=== PATIENT | female | born 1945 | race Caucasian/White ===

== ENCOUNTER 2018-04-06 12:51 | Inpatient (IN) | payer MEDICARE, OTHER ==
[~2018-04-06] VITALS: Ht 162.6 cm; Wt 110.7 kg
--- NOTE | ~2018-04-06 | MORECARE ---
CASE MANAGEMENT DISCHARGE SUMMARY PATIENT: ALEXYS JENSEN UNIT: [id number] ADM DATE: 04/06/18 AGE: 72 : [birth year] SEX: F ROOM/BED: D.2105 AUTHOR: JONATHAN,DOC PHYSICIAN: REFERRING PHYSICIAN: ANNE-MARIE DO MD DATE OF SERVICE: 04/08/18 Discharge Plan Patient Name: ALEXYS JENSEN Facility: [facility]:[place] : 1945 Planned Disposition: Home Anticipated Discharge Date: 04/08/18 Discharge Date: 04/08/2018 Expected LOS: 2 Initial Reviewer: [id number] Initial Review Date: 04/08/2018 Generated: 04/08/18 5:52 pm Comments DCP- Discharge Planning Updated by [id number]: Elvin Kohler on 04/08/18 3:[address] Patient Name: ALEXYS JENSEN Admission Status: ER Accout number: [id number] Admission Date: 04-06-2018 : 1945 Admission Diagnosis: Attending: ANNE-MARIE DO Current LOS: 2 Anticipated DC Date: 04-08-2018 Planned Disposition: Home Primary Insurance: MEDICARE A & B Discharge Planning Comments: CM MET WITH PT IN ROOM TO DISCUSS DISCHARGE PLANNING AND NEEDS. PT REPORTS LIVING AT HOME INDEPENDENTLY WITH HER SPOUSE. PT HAS ROLLING WALKER AND SHOWER CHAIR WITH NO MEDICAL EQUIPMENT PROVIDER PREFERENCE. PT HAS NO OUTSIDE SERVICES ASSISTING IN THE HOME. CM DISCUSSED AVAILABILITY OF HOME HEALTH, REHAB SERVICES AND MEDICAL EQUIPMENT. PT DENIES DISCHARGE NEEDS, REPORTS HER SPOUSE WILL PICK HER UP FOR DISCHARGE HOME. IMPORTANT MESSAGE FROM MEDICARE PROVIDED AND EXPLAINED. BACON DE RINDER NURSE NOTIFIED. Continuous Mining Machine Lode Miner: Elvin Kohler DCPIA - Discharge Planning Initial Assessment Updated by [id number]: Elvin Kohler on 04/08/18 4:43 pm * Is the patient Alert and Oriented? Yes * How many steps to enter\exit or inside your home? 2--I * PCP DR. HUMPHREYS * Pharmacy [facility] [address] * Preadmission Environment Home with Family * ADLs Independent * Equipment Rolling Walker Shower Chair * Other Equipment NO MEDICAL EQUIPMENT PROVIDER PREFERENCE * List name and contact numbers for known caregivers / representatives who currently or will assist patient after discharge: DAVID JENSEN, SPOUSE, * Verbal permission to speak to the caregivers and representatives has been obtained from the patient. N/A * Community resources currently utilized None * Please name any agencies selected above. NONE * Additional services required to return to the preadmission environment? No * Can the patient safely return to the preadmission environment? Yes * Has this patient been hospitalized within the prior 30 days at any hospital? No Coverage Notice Reviewer: [id number] Danielle Kohler Notice Issued Date-Time: 04/08/2018 11:35 Notice Type: IM Discharge Notice Notice Delivered To: Patient Relationship to Patient: Electrical Engineering Drafting Officer Name: Delivery Method: HAND - Hand Delivered Mayte Days: Prior Verbal Notification: Recipient Understood Notice: Yes Recipient Signature: Yes Med Rec Note Co-signed by Attending: Coverage Notice Comment: Patient Name: ALEXYS JENSEN Page [phone] at 1652 All edits/amendments must be made on the electronic document DICTATION DATE: 04/08/181650 ENDS BREAKAGE CLERK: JOE 04/08/181650 RPT#: [id number] DC DATE:04/08/18 STATUS: DIS IN [facility] [address] [place] [address] END OF REPORT
[~2018-04-06 12:51] MED LIST: DYAZIDE 37.5/251 CAP PO; GLUCOPHAGE500 MG PO; JANUVIA100 MG PO; OMEPRAZOLE PO; PROZAC20 MG PO; VIMOVO 500-201 EACH PO; [UNRECOGNIZED DRUG - OTHER] PO
[2018-04-06] MEDS ORDERED: PROTONIX40 MG PO (13:13)
[2018-04-06] MEDS ORDERED: HORIZANT PO (13:15)
[2018-04-06] MEDS ORDERED: AMOXICILLIN500 M1 PO (13:16)
[2018-04-06 13:46] LABS: BASOPHILS 0.4 % (0-2); IMMATURE GRANULOCYTES 0.1 % (0-5); LYMPHOCYTES 36.5 % (15-50); MCH 25.4 pg (26.0-34.0); MCHC 30.8 g/dL (31.0-37.0); MCV 82.5 fL (80.0-100.0); MEAN PLATELET VOLUME 11.6 fL (7.4-10.4); MONOCYTES 8.8 % (2-11); NEUTROPHILS 52.2 % (40-80); PLATELET COUNT 417 10x3/uL (130-400); RBC 4.73 10x6/uL (4.00-5.40); WBC 9.4 10x3/uL (4.8-10.8)
[2018-04-06 13:58] LABS: ALBUMIN 3.6 g/dL (3.4-5.0); ANION GAP 8.9 mmol/L (8-16); BILIRUBIN - TOTAL 0.32 mg/dL (0.2-1.3); CARBON DIOXIDE 31.4 mmol/L (21.0-32.0); CREATININE - SERUM 0.9 mg/dL (0.6-1.3); POTASSIUM - SERUM 4.3 mmol/L (3.5-5.1)
[2018-04-06 14:01] LABS: APPEARANCE CLEAR (CLEAR); BACTERIA FEW /hpf (NONE SEEN); BILIRUBIN NEGATIVE (NEGATIVE); COLOR YELLOW (YELLOW); EPITHELIAL CELLS 0-5 /hpf (0-5); GLUCOSE NEGATIVE (NEGATIVE); KETONE NEGATIVE (NEGATIVE); NITRITE NEGATIVE (NEGATIVE); PROTEIN NEGATIVE (NEGATIVE); SPECIFIC GRAVITY 1.015 (1.005-1.020); UROBILINOGEN NORMAL (NORMAL); WHITE CELLS - URINE 0-5 /hpf (0-5)
[2018-04-06 14:40] VITALS: BP 146/82
[2018-04-06 14:48] VITALS: BP 146/86
[2018-04-06 17:33] VITALS: BP 148/86
[2018-04-07] VITALS: BP 143/78
[2018-04-07 01:05] VITALS: BP 151/87
[2018-04-07 01:34] VITALS: BP 151/87; BMI 41.9
[2018-04-07 04:00] VITALS: BP 143/65
[2018-04-07 07:11] LABS: BASOPHILS 0.5 % (0-2); EOSINOPHILS 2.9 % (0-7); HEMATOCRIT 36.9 % (36.0-48.0); HEMOGLOBIN 11.4 g/dL (12-16); IMMATURE GRANULOCYTES 0.1 % (0-5); LYMPHOCYTES 43.4 % (15-50); MCH 25.4 pg (26.0-34.0); MCHC 30.9 g/dL (31.0-37.0); MCV 82.2 fL (80.0-100.0); MONOCYTES 8.8 % (2-11); NEUTROPHILS 44.3 % (40-80); PLATELET COUNT 426 10x3/uL (130-400); RBC 4.49 10x6/uL (4.00-5.40); RDW 17.1 % (11.5-14.5); WBC 7.9 10x3/uL (4.8-10.8)
[2018-04-07 07:47] LABS: ALBUMIN 3.4 g/dL (3.4-5.0); ALKALINE PHOSPHATASE 95 U/L (46-116); ALT (SGPT) 15 U/L (10-68); BILIRUBIN - TOTAL 0.54 mg/dL (0.2-1.3); CALCIUM 8.5 mg/dL (8.5-10.1); CARBON DIOXIDE 27.8 mmol/L (21.0-32.0); CHLORIDE - SERUM 104 mmol/L (98-107); CREATININE - SERUM 0.8 mg/dL (0.6-1.3); GLUCOSE 124 mg/dL (74-106); POTASSIUM - SERUM 3.8 mmol/L (3.5-5.1); PROTEIN - SERUM 7.5 g/dL (6.4-8.2); SODIUM 139 mmol/L (136-145); eGFR NON AFRICAN AMERICAN 75 mL/min (90-120)
[2018-04-07 07:48] LABS: CALC OSMOLALITY 277 mosm/kg (275-300); UREA NITROGEN 9 mg/dL (7-18)
[2018-04-07 08:19] VITALS: BP 146/90
[2018-04-07 11:02] VITALS: BP 140/76
[2018-04-07 11:33] VITALS: Ht 162.6 cm; Wt 110.7 kg
[2018-04-08 04:22] LABS: BASOPHILS 0.2 % (0-2); EOSINOPHILS 0.5 % (0-7); HEMATOCRIT 35.4 % (36.0-48.0); IMMATURE GRANULOCYTES 0.2 % (0-5); LYMPHOCYTES 31.6 % (15-50); MCH 25.2 pg (26.0-34.0); MCHC 31.1 g/dL (31.0-37.0); MCV 81.2 fL (80.0-100.0); MONOCYTES 6.9 % (2-11); NEUTROPHILS 60.6 % (40-80); PLATELET COUNT 338 10x3/uL (130-400); RBC 4.36 10x6/uL (4.00-5.40); RDW 16.9 % (11.5-14.5); WBC 8.1 10x3/uL (4.8-10.8)
[2018-04-08 04:43] LABS: INR 1.06 (0.85-1.17); PROTIME 13.3 SECONDS (11.6-15.0)
[2018-04-08 04:47] LABS: ALKALINE PHOSPHATASE 88 U/L (46-116); ALT (SGPT) 15 U/L (10-68); AMYLASE - SERUM 26 U/L (25-115); BILIRUBIN - TOTAL 0.35 mg/dL (0.2-1.3); CALC OSMOLALITY 270 mosm/kg (275-300); CALCIUM 8.3 mg/dL (8.5-10.1); CARBON DIOXIDE 25.9 mmol/L (21.0-32.0); CHLORIDE - SERUM 103 mmol/L (98-107); CHOL - HDL RATIO 3.6 ratio (2.3-4.1); CHOLESTEROL, TOTAL 176 mg/dL (0-200); CREATININE - SERUM 0.6 mg/dL (0.6-1.3); GLUCOSE 124 mg/dL (74-106); HDL CHOLESTEROL 49 mg/dL (32-96); LDL CHOLESTEROL 116 mg/dL (0-100); LDL-HDL RATIO 2.4 ratio (1.5-3.5); LIPASE 98 U/L (73-393); POTASSIUM - SERUM 3.9 mmol/L (3.5-5.1); PROTEIN - SERUM 6.8 g/dL (6.4-8.2); SODIUM 136 mmol/L (136-145); TRIGLYCERIDE 57 mg/dL (30-200); UREA NITROGEN 7 mg/dL (7-18); eGFR NON AFRICAN AMERICAN > 90 mL/min (90-120)
[2018-04-08 08:07] VITALS: BP 141/83
[2018-04-08] MEDS ORDERED: KEFLEX500 MG PO (10:41)
[2018-04-08] MEDS ORDERED: FLAGYL500 MG PO (10:41)
[2018-04-08 11:34] VITALS: BP 136/82
== END 2018-04-08 14:52 | disposition home or self-care (01) | DRG 392 ==
LOC: D.ER 12:51 → D.EDHOLD 18:05 → D.M2 18:05 → D.SDCHOLD 04-08 12:42 → D.M2 04-08 12:45
PROVIDERS: Family Medicine; Internal Medicine Gastroenterology; Internal Medicine Nephrology
DX: K57.32 Diverticulitis of large intestine without perforation or abscess without bleeding (principal); N17.9 Acute kidney failure, unspecified; D50.9 Iron deficiency anemia, unspecified; R16.0 Hepatomegaly, not elsewhere classified; I10 Essential (primary) hypertension; K21.9 Gastro-esophageal reflux disease without esophagitis; F41.9 Anxiety disorder, unspecified; F32.9 Major depressive disorder, single episode, unspecified; K76.0 Fatty (change of) liver, not elsewhere classified

== ENCOUNTER → 2018-10-05 08:51 | Outpatient (CLI) | payer MEDICARE, OTHER ==
[2018-04-07 11:33] VITALS: BMI 41.9
[~2018-10-05 08:51] MED LIST changes: +AMOXICILLIN500 M1 PO; +FLAGYL500 MG PO; +HORIZANT PO; +KEFLEX500 MG PO; +PROTONIX40 MG PO
[2018-10-05 09:51] LABS: ALBUMIN 4.2 g/dL (3.4-5.0); BILIRUBIN - DIRECT 0.09 mg/dL (0.00-0.30); BILIRUBIN - INDIRECT 0.39 mg/dL (0.00-1.00); BILIRUBIN - TOTAL 0.48 mg/dL (0.2-1.3); PROTEIN - SERUM 7.6 g/dL (6.4-8.2)
== END | disposition home or self-care (01) ==
LOC: D.US 08:51
PROVIDERS: ATTEND Internal Medicine Gastroenterology
DX: K76.0 Fatty (change of) liver, not elsewhere classified (principal)

== ENCOUNTER → 2018-11-29 15:10 | Outpatient (CLI) | payer MEDICARE, OTHER ==
[2018-04-07 11:33] VITALS: BMI 41.9
== END | disposition home or self-care (01) ==
LOC: D.LABREF 15:10
PROVIDERS: ATTEND Orthopaedic Surgery
DX: M17.12 Unilateral primary osteoarthritis, left knee (principal); Z11.8 Encounter for screening for other infectious and parasitic diseases

== ENCOUNTER 2018-12-02 09:36 | Inpatient (IN) | payer MEDICARE, OTHER ==
[~2018-12-02] VITALS: Ht 157.5 cm; Wt 109.5 kg
[2018-12-13] MEDS ORDERED: VIMOVO 500-201 EACH PO (14:52)
[2018-12-13] MEDS ORDERED: HYDROCODON-ACE1 EA10 PO (14:55)
[2018-12-13] MEDS ORDERED: CO Q-10100 MG PO (14:56)
[2018-12-13] MEDS ORDERED: TUMERIC PO (14:56)
[2018-12-14 11:19] LABS: BASOPHILS 0.4 % (0-2); EOSINOPHILS 3.1 % (0-7); HEMATOCRIT 38.3 % (36.0-48.0); HEMOGLOBIN 12.2 g/dL (12-16); IMMATURE GRANULOCYTES 0.2 % (0-5); LYMPHOCYTES 36.7 % (15-50); MCHC 31.9 g/dL (31.0-37.0); MCV 84.7 fL (80.0-100.0); MEAN PLATELET VOLUME 11.4 fL (7.4-10.4); MONOCYTES 8.1 % (2-11); NEUTROPHILS 51.5 % (40-80); RBC 4.52 10x6/uL (4.00-5.40); RDW 16.8 % (11.5-14.5); WBC 9.5 10x3/uL (4.8-10.8)
[2018-12-14 11:23] LABS: PLATELET COUNT 418 10x3/uL (130-400)
[2018-12-14 11:31] LABS: ANION GAP 10.3 mmol/L (8-16); CARBON DIOXIDE 30.3 mmol/L (21.0-32.0); CREATININE - SERUM 0.9 mg/dL (0.6-1.3); POTASSIUM - SERUM 4.6 mmol/L (3.5-5.1)
[2018-12-14 11:35] LABS: APTT 29.1 SECONDS (22.8-39.4); INR 1.02 (0.85-1.17); PROTIME 12.9 SECONDS (11.6-15.0)
[2018-12-14 11:51] LABS: APPEARANCE HAZY (CLEAR); BACTERIA MODERATE /hpf (NONE SEEN); BILIRUBIN NEGATIVE (NEGATIVE); COLOR YELLOW (YELLOW); EPITHELIAL CELLS 0-5 /hpf (0-5); GLUCOSE NEGATIVE (NEGATIVE); KETONE NEGATIVE (NEGATIVE); NITRITE NEGATIVE (NEGATIVE); PROTEIN NEGATIVE (NEGATIVE); RED CELLS - URINE 0-5 /hpf (0-5); SPECIFIC GRAVITY 1.015 (1.005-1.020); WHITE CELLS - URINE 0-5 /hpf (0-5)
[2018-12-14 11:52] LABS: HYALINE CAST RARE /lpf (NONE SEEN); MUCUS >1+ /lpf (NONE SEEN); WAXY CAST RARE /lpf (NONE SEEN)
[2018-12-21 06:08] VITALS: BP 123/79; BMI 44.2
[2018-12-21 10:42] VITALS: BP 122/84
[2018-12-21 10:59] VITALS: BP 122/84; Ht 157.5 cm; Wt 109.5 kg
--- NOTE | 2018-12-21 11:07 | NUR ---
TO ROOM 2220 FROM PACU VIA BED. PT IS VERY DROWSY. SHE IS WITHOUT SIGNS OF PAIN.VITAL SIGNS STABLE,SEE GRAPHICS. ORIENTATION TO ROOM.CALL LIGHT IN REACH
[2018-12-21 18:46] VITALS: BP 110/56
--- NOTE | 2018-12-21 20:30 | NUR ---
AWAKE,ALERT WITH CONFUSION NOTED. DISORIENTED TO SITUATION.IV INFUSING TO LEFT WRIST WITHOUT REDNESS OR EDEMA NOTED. KATH WRAP TO LEFT KNEE WITHOUT DRAINAGE NOTED. REQUESTING CPM BE TAKEN OFF AT THIS TIME. WOUND VAC INTACT TO LEFT KNEE CL IN REACH. AT BEDSIDE.
--- NOTE | 2018-12-21 22:10 | NUR ---
PATIENT CONFUSED. PULLED IV OUT.STATES"GOTTA BE AT HOSPITAL AT 4AM FOR SURGERY". ATTEMPTED TO REORIENT TO SURROUNDINGS.STATES" OH I FORGOT". IV RESTART X 3 NURSES AND 6 ATTEMPTS WITHOUT SUCCESS. PATIENT REFUSING TO BE STUCK AGAIN.CL IN REACH
[2018-12-21 22:19] VITALS: BP 159/70
[2018-12-22 02:02] VITALS: BP 142/80
--- NOTE | 2018-12-22 04:42 | NUR ---
I have reviewed this patient and I concur with the Shift Assessment completed by the Licensed Practical Nurse today this shift.
[2018-12-22 05:04] VITALS: BP 147/68
--- NOTE | 2018-12-22 05:15 | NUR ---
PATIENT SITTING ON SIDE OF BED. INSTRUCTED PATIENT NO TO TRY TO GET UP BY HERSELF. PATIENT NO NOTED TO BE SITTING IN CHAIR. STATES" I JUST WANTED UP"
--- NOTE | 2018-12-22 05:24 | NUR ---
ATTEMPTED TO EXPLAIN TO PATIENT IMPORTANCE OF STAYING IN BED UNTIL THERAPHY COME IN TO WORK WITH HER. STATE" IM TIRED OF YOU TELLING ME WHAT I CAN DO. I HAVE DONE THIS TOO MANY TIMES AND YOU AND THE DR OR WHOEVER CAN JUST FORGET IT BECAUSE I WILL DO WHATEVER I WANNA DO. PATIENT HAS TRANSFERRED SELF BACK TO BED. CL IN REACH
[2018-12-22 07:09] LABS: BASOPHILS 0.2 % (0-2); EOSINOPHILS 0.1 % (0-7); HEMATOCRIT 34.8 % (36.0-48.0); HEMOGLOBIN 10.8 g/dL (12-16); IMMATURE GRANULOCYTES 0.3 % (0-5); LYMPHOCYTES 22.4 % (15-50); MCH 26.4 pg (26.0-34.0); MCV 85.1 fL (80.0-100.0); MONOCYTES 11.1 % (2-11); NEUTROPHILS 65.9 % (40-80); PLATELET COUNT 356 10x3/uL (130-400); RBC 4.09 10x6/uL (4.00-5.40); RDW 16.8 % (11.5-14.5)
--- NOTE | 2018-12-22 07:15 | NUR ---
PT CONFUSED THIS AM. PT STATES SHE HAS TO GO TO THE HOSPITAL TO HAVE SURGERY. THIS NURSE REORIENTED PATIENT. NO C/O PAIN. POD #1 LTK, WOUND VAC TO KNEE AND KATH WRAP. PT WILL NOT KEEP CPM ON. PT TOOK OUT IV LAST NIGHT AND WAS UNABLE TO BE RESITED. IV STILL OUT. NO S/S OF ACUTE DISTRESS NOTED. PT DENIES ANY NEEDS. CALL LIGHT IN REACH. DAVE ALARM ON. WILL CONTINUE TO MONITOR.
[2018-12-22 07:23] LABS: ANION GAP 16.3 mmol/L (8-16); CALCIUM 8.1 mg/dL (8.5-10.1); CREATININE - SERUM 0.9 mg/dL (0.6-1.3); POTASSIUM - SERUM 4.3 mmol/L (3.5-5.1)
[2018-12-22 09:37] VITALS: BP 141/76
--- NOTE | 2018-12-22 12:18 | NUR ---
I have reviewed this patient and I concur with the Shift Assessment completed by the Licensed Practical Nurse today this shift.
[2018-12-22 13:07] VITALS: BP 106/88
[2018-12-22 18:14] VITALS: BP 178/72
--- NOTE | 2018-12-22 18:43 | NUR ---
PT ALERT AND ORIENTED. PT DENIES ANY NEEDS. CALL LIGHT IN REACH. WILL CONTINUE TO MONITOR.
--- NOTE | 2018-12-22 18:44 | NUR ---
PT CONFUSED, VERBALLY DISRUPTIVE AND AGITATED. CURSING AND YELLING AT STAFF. KEEPS GETTING OUT OF BED, DAVE ALARM ON AT ALL TIMES. PT STATES "I AM GOING TO DO WHAT I WANT AND YOU CAN'T TELL ME WHAT TO DO!" PT NONCOMPLIANT WITH ASKING FOR ASSISTANCE. HIGH FALL RISK.
[2018-12-22 21:09] VITALS: BP 126/87
[2018-12-23 01:30] VITALS: BP 189/63
[2018-12-23 05:11] LABS: BASOPHILS 0.2 % (0-2); EOSINOPHILS 0.1 % (0-7); HEMATOCRIT 35.9 % (36.0-48.0); HEMOGLOBIN 11.5 g/dL (12-16); IMMATURE GRANULOCYTES 0.4 % (0-5); LYMPHOCYTES 23.9 % (15-50); MCH 26.6 pg (26.0-34.0); MEAN PLATELET VOLUME 12.2 fL (7.4-10.4); MONOCYTES 10.1 % (2-11); NEUTROPHILS 65.3 % (40-80); PLATELET COUNT 371 10x3/uL (130-400); RBC 4.32 10x6/uL (4.00-5.40); RDW 16.2 % (11.5-14.5)
[2018-12-23 05:13] LABS: MCV 83.1 fL (80.0-100.0); WBC 15.8 10x3/uL (4.8-10.8)
[2018-12-23 08:24] VITALS: BP 122/57
--- NOTE | 2018-12-23 09:00 | NUR ---
ALERT AND ORIENTED TO SELF ONLY. WITH KATH WRAP AND DRESSING INTACT TO LLE. PEDAL PULSES NOTED. DENIES ANY PAIN OR DISCOMFORT AT THIS TIME.WOUND VACINTACT TO LLE WITH FALL PRECAUTIONS IN PLACE.
[2018-12-23 10:39] LABS: ALBUMIN 3.1 g/dL (3.4-5.0); ALKALINE PHOSPHATASE 153 U/L (46-116); ALT (SGPT) 89 U/L (10-68); BILIRUBIN - TOTAL 0.71 mg/dL (0.2-1.3); CALCIUM 8.8 mg/dL (8.5-10.1); CARBON DIOXIDE 28.5 mmol/L (21.0-32.0); CHLORIDE - SERUM 99 mmol/L (98-107); CREATININE - SERUM 0.7 mg/dL (0.6-1.3); GLUCOSE 156 mg/dL (74-106); PROTEIN - SERUM 7.4 g/dL (6.4-8.2); SODIUM 136 mmol/L (136-145); eGFR NON AFRICAN AMERICAN 87 mL/min (90-120)
[2018-12-23 10:40] LABS: CALC OSMOLALITY 273 mosm/kg (275-300); POTASSIUM - SERUM 3.6 mmol/L (3.5-5.1); UREA NITROGEN 9 mg/dL (7-18)
[2018-12-23 13:40] VITALS: BP 131/65
[2018-12-23 16:45] VITALS: BP 162/91
[2018-12-23 19:57] LABS: APPEARANCE CLEAR (CLEAR); BILIRUBIN NEGATIVE (NEGATIVE); COLOR YELLOW (YELLOW); GLUCOSE NEGATIVE (NEGATIVE); KETONE NEGATIVE (NEGATIVE); NITRITE NEGATIVE (NEGATIVE); PROTEIN 1+ mg/dL (NEGATIVE); SPECIFIC GRAVITY 1.005 (1.005-1.020); UROBILINOGEN NORMAL (NORMAL)
[2018-12-23 19:59] LABS: BACTERIA FEW /hpf (NONE SEEN); EPITHELIAL CELLS 0-5 /hpf (0-5); RED CELLS - URINE 0-5 /hpf (0-5); WHITE CELLS - URINE 0-5 /hpf (0-5)
[2018-12-23 20:07] VITALS: BP 154/68
[2018-12-24 08:06] LABS: ALBUMIN 2.7 g/dL (3.4-5.0); ANION GAP 13.6 mmol/L (8-16); BILIRUBIN - TOTAL 0.79 mg/dL (0.2-1.3); CALCIUM 8.6 mg/dL (8.5-10.1); CREATININE - SERUM 0.8 mg/dL (0.6-1.3); POTASSIUM - SERUM 3.6 mmol/L (3.5-5.1); PROTEIN - SERUM 6.9 g/dL (6.4-8.2)
[2018-12-24 08:14] LABS: BASOPHILS 0.3 % (0-2); HEMATOCRIT 32.6 % (36.0-48.0); HEMOGLOBIN 10.5 g/dL (12-16); IMMATURE GRANULOCYTES 0.3 % (0-5); LYMPHOCYTES 22.7 % (15-50); MCH 26.4 pg (26.0-34.0); MCHC 32.2 g/dL (31.0-37.0); MCV 81.9 fL (80.0-100.0); MEAN PLATELET VOLUME 12.4 fL (7.4-10.4); MONOCYTES 11.1 % (2-11); NEUTROPHILS 64.6 % (40-80); PLATELET COUNT 363 10x3/uL (130-400); RBC 3.98 10x6/uL (4.00-5.40); RDW 16.3 % (11.5-14.5); WBC 14.8 10x3/uL (4.8-10.8)
--- NOTE | 2018-12-24 09:49 | NUR ---
PT LYING IN BED STATED THAT HER LEGS ARE HURTING FROM BEING IN THE CPM MACHINE AND THEY LEFT ON THERE TOO LONG SO SHE TOOK IT OFF AND REFUSES TO BE PLACED BACK ON IT TODAY. PT STATES SHE DOES NOT HAVE AN APPETITE AND " JUST DON'T FEEL LIKE EATING" NO FAMILY AT BEDSIDE, CL IN REACH CONTINUE WITH PLAN OF CARE
[2018-12-24 10:25] VITALS: BP 151/68
[2018-12-24 13:14] VITALS: BP 108/52
--- NOTE | 2018-12-24 19:11 | NUR ---
I have reviewed this patient and I concur with the Shift Assessment completed by the Licensed Practical Nurse today this shift.
--- NOTE | 2018-12-24 19:45 | NUR ---
PT IN BED ALERT AND CONFUSED DAVIAN AT BEDSIDE, ENCOURGED TO STAY THE NIGHT SHE WAS UP MULTABLE TIMES LAST NIGHT WITH CONFUSION. WATER AND CALL LIGHT IN REACH.
[2018-12-24 20:55] VITALS: BP 137/59
[2018-12-25 05:16] VITALS: BP 130/80
[2018-12-25 07:03] LABS: BASOPHILS 0.2 % (0-2); EOSINOPHILS 3.1 % (0-7); HEMATOCRIT 32.7 % (36.0-48.0); HEMOGLOBIN 10.5 g/dL (12-16); IMMATURE GRANULOCYTES 0.5 % (0-5); LYMPHOCYTES 28.2 % (15-50); MCH 26.3 pg (26.0-34.0); MCHC 32.1 g/dL (31.0-37.0); MCV 81.8 fL (80.0-100.0); PLATELET COUNT 415 10x3/uL (130-400); RDW 16.2 % (11.5-14.5); WBC 12.6 10x3/uL (4.8-10.8)
[2018-12-25 07:21] LABS: ALBUMIN 2.6 g/dL (3.4-5.0); ANION GAP 12.6 mmol/L (8-16); BILIRUBIN - TOTAL 0.83 mg/dL (0.2-1.3); CALCIUM 8.5 mg/dL (8.5-10.1); CARBON DIOXIDE 25.9 mmol/L (21.0-32.0); CREATININE - SERUM 0.9 mg/dL (0.6-1.3); POTASSIUM - SERUM 3.5 mmol/L (3.5-5.1); PROTEIN - SERUM 6.8 g/dL (6.4-8.2)
[2018-12-25 08:32] VITALS: BP 122/69
--- NOTE | 2018-12-25 12:46 | NUR ---
PT SITTING UP IN BED EATING, STATES LEFT LEG IS REALLY HURTING TODAY, GAVE PT SEVERAL BAGS OF ICE AND ELEVATED LEG. ADMINISTERED PRN PAIN MEDICATION WITH 1200 MEDS. PT IS PASSING GAS BUT STILL NO BM WILL CONTINUE WITH PLAN OF CARE
[2018-12-25 13:28] VITALS: BP 100/77
--- NOTE | 2018-12-25 14:06 | NUR ---
I have reviewed this patient and I concur with the Shift Assessment completed by the Licensed Practical Nurse today this shift.
[2018-12-25 16:56] VITALS: BP 100/58
[2018-12-25 20:00] VITALS: BP 141/79
--- NOTE | 2018-12-25 21:36 | NUR ---
PT IN BED WITH JEANNINE AT BEDSIDE. ALERT AND ABLE TO VOICE NEEDS AND WANTS TO STAFF. WATER AND CALL LIGHT IN REACH. NO S/S OF DISTRESS NOTED AT THIS TIME. DRESSING TO LEFT KNEE CDI. WOUND VAC IN PLACE AND WORKING. REFUSED SCD'S. USED CPM FOR SHOURT TIME THIS SHIFT. CHECKED OFTEN FOR NEEDS AND SAFETY.
[2018-12-26] VITALS: BP 139/107
--- NOTE | 2018-12-26 01:25 | NUR ---
MYSQL DATABASE ADMINISTRATOR REPORTED ELAVATED B/P RECHECK WITH MANIUAL WAS 164/80
[2018-12-26 06:03] LABS: BASOPHILS 0.5 % (0-2); EOSINOPHILS 2.9 % (0-7); HEMATOCRIT 33.3 % (36.0-48.0); HEMOGLOBIN 10.6 g/dL (12-16); IMMATURE GRANULOCYTES 0.4 % (0-5); LYMPHOCYTES 29.5 % (15-50); MCH 26.4 pg (26.0-34.0); MCHC 31.8 g/dL (31.0-37.0); MEAN PLATELET VOLUME 11.8 fL (7.4-10.4); MONOCYTES 11.7 % (2-11); PLATELET COUNT 427 10x3/uL (130-400); RBC 4.01 10x6/uL (4.00-5.40); RDW 16.3 % (11.5-14.5); WBC 11.6 10x3/uL (4.8-10.8)
[2018-12-26 06:28] LABS: ALBUMIN 2.7 g/dL (3.4-5.0); ANION GAP 13.1 mmol/L (8-16); BILIRUBIN - TOTAL 0.77 mg/dL (0.2-1.3); CALCIUM 8.5 mg/dL (8.5-10.1); CREATININE - SERUM 0.8 mg/dL (0.6-1.3); PROTEIN - SERUM 6.3 g/dL (6.4-8.2)
[2018-12-26 06:39] LABS: POTASSIUM - SERUM 5.1 mmol/L (3.5-5.1)
--- NOTE | 2018-12-26 08:34 | NUR ---
Unknown reason for wound care consult. Pt is p/o knee and is being managed by Ortho.
[2018-12-26 08:41] VITALS: BP 152/84
[2018-12-26 14:01] VITALS: BP 142/78
--- NOTE | 2018-12-26 14:52 | MORECARE ---
CASE MANAGEMENT DISCHARGE SUMMARY PATIENT: ALEXYS JENSEN UNIT: [id number] ADM DATE: 12/21/18 AGE: 73 : 47 SEX: F ROOM/BED: D.2220 AUTHOR: MARILU CASTILLO PHYSICIAN: REFERRING PHYSICIAN: ÓSCAR MONTES MD DATE OF SERVICE: 12/26/18 Discharge Plan Patient Name: ALEXYS JENSEN Facility: [facility]:[place] : 1945 Planned Disposition: Home or Self Care Anticipated Discharge Date: Discharge Date: Expected LOS: Initial Reviewer: [id number] Initial Review Date: 12/21/2018 Generated: 12/26/18 3:52 pm Comments DCP- Discharge Planning Updated by [id number]: Aleena Mcdonald on 12/26/18 1:[address] Patient Name: ALEXYS JENSEN Admission Status: Elective Accout number: [id number] Admission Date: 12-21-2018 : 1945 Admission Diagnosis:UNILATERAL PRIMARY OSTEOARTHRITIS, LEFT KNEE Attending: ÓSCAR MONTES Current LOS: 5 Anticipated DC Date: Planned Disposition: Home or Self Care Primary Insurance: MEDICARE A & B Discharge Planning Comments: CM met with patient to complete initial dc planning assessment. CM educated patient on the CM role and verbal consent given by patient to complete assessment. Patient lives at home with her where she is independent with her care. At discharge patient plans to return home and feels this is a safe discharge. CM discussed availability of home health, rehab services, and medical equipment. She questioned about physical therapy, she does not want home health & feels that she could drive herself to OP PT. I explained to her that she would have to get that approved by her MD first. She has a walker, shower chair, BSC at home. She stated that someone has called her about delivering her CPM. [facility] served and explained to patient. Patient denied known discharge needs at this time. CM will continue to follow and will assist as needed with dc plans/needs. Housing And Residence Life Director: Aleena Mcdonald DCPIA - Discharge Planning Initial Assessment Updated by [id number]: Aleena Mcdonald on 12/26/18 2:48 pm * Is the patient Alert and Oriented? Yes * How many steps to enter\exit or inside your home? 14 * PCP JULIANN * Pharmacy [facility] * Preadmission Environment Home with Family * ADLs Independent * Equipment Bedside Commode Rolling Walker Shower Chair * List name and contact numbers for known caregivers / representatives who currently or will assist patient after discharge: DAVID JENSEN [phone] * Verbal permission to speak to the caregivers and representatives has been obtained from the patient. Yes * Community resources currently utilized None * Additional services required to return to the preadmission environment? Yes * Can the patient safely return to the preadmission environment? Yes * Has this patient been hospitalized within the prior 30 days at any hospital? No Coverage Notice Reviewer: [id number] Danielle Mcdonald Notice Issued Date-Time: 12/26/2018 14:20 Notice Type: IM Discharge Notice Notice Delivered To: Patient Relationship to Patient: Primary Care Nurse Name: Delivery Method: HAND - Hand Delivered Mayte Days: Prior Verbal Notification: Recipient Understood Notice: Yes Recipient Signature: Yes Med Rec Note Co-signed by Attending: Coverage Notice Comment: Patient Name: ALEXYS JENSEN Page [phone] at 1452 All edits/amendments must be made on the electronic document DICTATION DATE: 12/26/181451 WASHER ENGINEER HELPER: JOE 12/26/181451 RPT#: [id number] DC DATE: STATUS: ADM IN [address] [place] [address] END OF REPORT
[2018-12-26 17:15] VITALS: BP 148/74
--- NOTE | 2018-12-26 19:30 | NUR ---
PATIENT REFUSES CPM.
[2018-12-26 20:00] VITALS: BP 156/69; BP 158/71
--- NOTE | 2018-12-26 20:00 | NUR ---
ASSESSMENT PER FLOW SHEET. PT IS WITHOUT DISTRESS.HUSNBAND AT BEDSIDE. MONITOR FOR NEEDS.
[2018-12-27] VITALS: BP 156/81
--- NOTE | 2018-12-27 01:52 | NUR ---
HAS BEEN UP IN CHAIR. PAIN PILL GIVEN 20 MIN EARLY. PT STATES SHE HAS BEEN HAVING PAIN AND WAS TOLD SHE COULD HAVE MEDS WHEN EVER SHE WANTED. INSTRUCTED PT MEDS WERE EVERY FOUR HOURS NEEDED FOR PAIN.
[2018-12-27 04:00] VITALS: BP 127/81
--- NOTE | 2018-12-27 06:30 | NUR ---
HAD BEEN UP EARLY THIS AM.COMPLAINS OF PAIN IN KNEE,MEDS ORDERED.PT DECLINES CPM. PT STATES MAKES HER LEG HURT. CONT PLAN OF CARE
[2018-12-27 07:41] LABS: ALBUMIN 2.8 g/dL (3.4-5.0); ALKALINE PHOSPHATASE 137 U/L (46-116); ALT (SGPT) 41 U/L (10-68); BILIRUBIN - TOTAL 0.63 mg/dL (0.2-1.3); CALC OSMOLALITY 281 mosm/kg (275-300); CALCIUM 8.6 mg/dL (8.5-10.1); CARBON DIOXIDE 25.8 mmol/L (21.0-32.0); CHLORIDE - SERUM 103 mmol/L (98-107); CREATININE - SERUM 0.7 mg/dL (0.6-1.3); GLUCOSE 119 mg/dL (74-106); PROTEIN - SERUM 6.4 g/dL (6.4-8.2); SODIUM 141 mmol/L (136-145); UREA NITROGEN 13 mg/dL (7-18); eGFR NON AFRICAN AMERICAN 87 mL/min (90-120)
[2018-12-27 07:42] LABS: POTASSIUM - SERUM 4.1 mmol/L (3.5-5.1)
[2018-12-27 07:58] LABS: BASOPHILS 0.5 % (0-2); EOSINOPHILS 2.6 % (0-7); HEMATOCRIT 34.1 % (36.0-48.0); IMMATURE GRANULOCYTES 0.4 % (0-5); LYMPHOCYTES 39.1 % (15-50); MCH 26.9 pg (26.0-34.0); MCHC 32.3 g/dL (31.0-37.0); MCV 83.4 fL (80.0-100.0); MEAN PLATELET VOLUME 12.5 fL (7.4-10.4); MONOCYTES 9.5 % (2-11); NEUTROPHILS 47.9 % (40-80); RBC 4.09 10x6/uL (4.00-5.40); RDW 16.2 % (11.5-14.5); WBC 9.8 10x3/uL (4.8-10.8)
[2018-12-27 08:06] LABS: PLATELET COUNT 531 10x3/uL (130-400)
[2018-12-27 09:33] VITALS: BP 152/82
[2018-12-27 11:29] VITALS: BP 165/79
[2018-12-27 16:35] VITALS: BP 149/79
--- NOTE | 2018-12-27 18:50 | NUR ---
PATIENT IN BED WITH CALL LIGHT WITHIN REACH. WAITING TO RECIEVE MORE PAIN MEDS. STATED THAT SHE IS STILL HURTING. MAY HAVE NORCO AGAIN AT 1915.
--- NOTE | 2018-12-27 19:00 | NUR ---
ASSESSMENT PER FLOW SHEET. PT IS WITHOUT DISTRESS.MEDS ORDERED PER MAR FOR PAIN. MONITOR FOR NEEDS.CALL LIGHT IN REACH
[2018-12-27 20:00] VITALS: BP 178/91
--- NOTE | 2018-12-28 06:02 | NUR ---
TEARFUL THIS AM. HAS FEARS ABOUT POSSIBLE DC HOME TODAY. REMAINS WITHOUT CHANGE FROM INITIAL SHIFT ASSESSMENT.CONT PLAN OF CARE
--- NOTE | 2018-12-28 08:10 | NUR ---
PATIENT IS ALERT/ORENT. CALL LIGHT WITHI REACH. REQUESTED PRN NORCO FOR LEFT KNEE PAIN. GIVEN BY THIS NURSE
[2018-12-28 08:13] LABS: BASOPHILS 0.5 % (0-2); EOSINOPHILS 4.1 % (0-7); HEMATOCRIT 32.2 % (36.0-48.0); HEMOGLOBIN 10.3 g/dL (12-16); IMMATURE GRANULOCYTES 0.4 % (0-5); LYMPHOCYTES 32.1 % (15-50); MCH 26.5 pg (26.0-34.0); MCV 82.8 fL (80.0-100.0); MEAN PLATELET VOLUME 11.4 fL (7.4-10.4); MONOCYTES 8.9 % (2-11); PLATELET COUNT 515 10x3/uL (130-400); RBC 3.89 10x6/uL (4.00-5.40); RDW 16.2 % (11.5-14.5); WBC 10.3 10x3/uL (4.8-10.8)
[2018-12-28 08:45] LABS: ALBUMIN 2.5 g/dL (3.4-5.0); ANION GAP 13.1 mmol/L (8-16); BILIRUBIN - TOTAL 0.49 mg/dL (0.2-1.3); CALCIUM 8.7 mg/dL (8.5-10.1); CREATININE - SERUM 0.8 mg/dL (0.6-1.3); POTASSIUM - SERUM 4.1 mmol/L (3.5-5.1); PROTEIN - SERUM 6.8 g/dL (6.4-8.2)
[2018-12-28 10:17] VITALS: BP 153/88
--- NOTE | 2018-12-28 10:30 | NUR ---
PRN MOTRIN GIVEN FOR HEADACHE PER PATIENT REQUEST
--- NOTE | 2018-12-28 12:11 | NUR ---
Rehab Prescreening Consult recieved and the chart has been reviewed. She meets criteria and will be accepted today to the ARU. Discussed with the CM Patricia Mcdonald RN. Natalia Lock RN Clinical Liaison, Rehab
[2018-12-28 13:11] VITALS: BP 161/83
[2018-12-28] MEDS ORDERED: LOVENOX120 MG/0.8 SC (15:31)
[2018-12-28] MEDS ORDERED: MUCINEX600 MG PO (15:37)
[2018-12-28] MEDS ORDERED: TESSALON PERLE100 MG PO (15:37)
[2018-12-28] MEDS ORDERED: PROTONIX40 MG PO (15:37)
[2018-12-28] MEDS ORDERED: COLACE100 MG PO (15:37)
--- NOTE | 2018-12-28 15:51 | NUR ---
PREVENA DRESSING REMOVED FROM LEFT KNEE. INCISION CLEAN DRY AND INTACT. DRESSING APPLIED. SITTING IN RECLINER WITH LEGS ELEVATED WITH FRESH ICE BAGS X 2 APPLIED TO LEFT KNEE. FRIEND AT BEDSIDE. CALL LIGHT IN REACH
[2018-12-28 16:24] VITALS: BP 156/95
--- NOTE | 2018-12-28 17:18 | NUR ---
REPORT GIVEN TO STACIA HO, FOR ADMISSION TO REHAB
--- NOTE | 2018-12-28 18:43 | NUR ---
PATIENT TAKEN DOWN TO REHAB IN WHEELCHAIR BY STAFF
--- NOTE | 2019-01-04 09:51 | MORECARE ---
CASE MANAGEMENT DISCHARGE SUMMARY PATIENT: ALEXYS JENSEN UNIT: [id number] ADM DATE: 12/21/18 AGE: 73 : 46 SEX: F ROOM/BED: D.2220 AUTHOR: MARILU CASTILLO PHYSICIAN: REFERRING PHYSICIAN: ÓSCAR MONTES MD DATE OF SERVICE: 01/04/19 Discharge Plan Patient Name: ALEXYS JENSEN Facility: [facility]:[place] : 1945 Planned Disposition: Home or Self Care Anticipated Discharge Date: Discharge Date: 12/28/2018 Expected LOS: 0 Initial Reviewer: [email or web address] Initial Review Date: 12/21/2018 Generated: 01/04/19 10:50 am Comments DCP- Discharge Planning Updated by [email or web address]: Aleena Mcdonald on 12/26/18 1:[address] Patient Name: ALEXYS JENSEN Admission Status: Elective Accout number: [id number] Admission Date: 12-21-2018 : 1945 Admission Diagnosis:UNILATERAL PRIMARY OSTEOARTHRITIS, LEFT KNEE Attending: ÓSCAR MONTES Current LOS: 5 Anticipated DC Date: Planned Disposition: Home or Self Care Primary Insurance: MEDICARE A & B Discharge Planning Comments: CM met with patient to complete initial dc planning assessment. CM educated patient on the CM role and verbal consent given by patient to complete assessment. Patient lives at home with her where she is independent with her care. At discharge patient plans to return home and feels this is a safe discharge. CM discussed availability of home health, rehab services, and medical equipment. She questioned about physical therapy, she does not want home health & feels that she could drive herself to OP PT. I explained to her that she would have to get that approved by her MD first. She has a walker, shower chair, BSC at home. She stated that someone has called her about delivering her CPM. [facility] served and explained to patient. Patient denied known discharge needs at this time. CM will continue to follow and will assist as needed with dc plans/needs. Tactical Debriefer Officer: Aleena Mcdonald DCPIA - Discharge Planning Initial Assessment Updated by [email or web address]: Aleena Mcdonald on 12/26/18 2:48 pm * Is the patient Alert and Oriented? Yes * How many steps to enter\exit or inside your home? 14 * PCP JULIANN * Pharmacy [facility] * Preadmission Environment Home with Family * ADLs Independent * Equipment Bedside Commode Rolling Walker Shower Chair * List name and contact numbers for known caregivers / representatives who currently or will assist patient after discharge: DAVID JENSEN [phone] * Verbal permission to speak to the caregivers and representatives has been obtained from the patient. Yes * Community resources currently utilized None * Additional services required to return to the preadmission environment? Yes * Can the patient safely return to the preadmission environment? Yes * Has this patient been hospitalized within the prior 30 days at any hospital? No Coverage Notice Reviewer: [email or web address] Danielle Mcdonald Notice Issued Date-Time: 12/26/2018 14:20 Notice Type: IM Discharge Notice Notice Delivered To: Patient Relationship to Patient: Operational Review Sergeant Name: Delivery Method: HAND - Hand Delivered Mayte Days: Prior Verbal Notification: Recipient Understood Notice: Yes Recipient Signature: Yes Med Rec Note Co-signed by Attending: Coverage Notice Comment: Last DP export: 12/26/18 1:52 p Patient Name: ALEXYS JENSEN Page [id number] at 0951 All edits/amendments must be made on the electronic document DICTATION DATE: 01/04/19949 VARNISH THINNER: JOE 01/04/19949 RPT#: [id number] DC DATE:12/28/18 STATUS: DIS IN [place] [place] [address] END OF REPORT
== END 2018-12-28 18:44 | DRG 469 ==
LOC: D.SDCHOLD 12-21 05:35 → D.MS 12-21 05:35 → D.SDCHOLD 12-21 07:30 → D.MS 12-21 10:07
PROVIDERS: Emergency Medicine; ADMIT Orthopaedic Surgery; ATTEND Orthopaedic Surgery
PROC: 0SRD0J9 Replacement of Left Knee Joint with Synthetic Substitute, Cemented, Open Approach (ICD-10-PCS; principal; 2018-12-21 07:30)
DX: M17.12 Unilateral primary osteoarthritis, left knee (principal); G93.41 Metabolic encephalopathy; I82.402 Acute embolism and thrombosis of unspecified deep veins of left lower extremity; D62 Acute posthemorrhagic anemia; Z68.41 Body mass index [BMI] 40.0-44.9, adult; I10 Essential (primary) hypertension; E11.65 Type 2 diabetes mellitus with hyperglycemia; D50.9 Iron deficiency anemia, unspecified; K57.90 Diverticulosis of intestine, part unspecified, without perforation or abscess without bleeding; M54.9 Dorsalgia, unspecified; M79.7 Fibromyalgia; F41.8 Other specified anxiety disorders; N95.9 Unspecified menopausal and perimenopausal disorder; E66.9 Obesity, unspecified

== ENCOUNTER → 2018-12-20 14:54 | Outpatient (CLI) | payer MEDICARE, OTHER ==
[2018-04-07 11:33] VITALS: BMI 41.9
[~2018-12-20 14:54] MED LIST changes: +CO Q-10100 MG PO; +HYDROCODON-ACE1 EA10 PO; +TUMERIC PO
[2018-12-20 15:07] LABS: APPEARANCE CLEAR (CLEAR); BILIRUBIN NEGATIVE (NEGATIVE); COLOR YELLOW (YELLOW); GLUCOSE NEGATIVE (NEGATIVE); KETONE NEGATIVE (NEGATIVE); NITRITE NEGATIVE (NEGATIVE); PROTEIN NEGATIVE (NEGATIVE); UROBILINOGEN NORMAL (NORMAL)
== END | disposition home or self-care (01) ==
LOC: D.LABREF 14:54
PROVIDERS: ATTEND Orthopaedic Surgery
DX: N39.0 Urinary tract infection, site not specified (principal)

== ENCOUNTER 2018-12-28 18:30 | Inpatient (IN) | payer MEDICARE, OTHER ==
[~2018-12-28] VITALS: Ht 157.5 cm; Wt 110.7 kg
[~2018-12-28 18:30] MED LIST changes: +COLACE100 MG PO; +LOVENOX120 MG/0.8 SC; +MUCINEX600 MG PO; +TESSALON PERLE100 MG PO
--- NOTE | 2018-12-28 18:35 | NUR ---
ARRIVED TO ROOM 1115 FROM ACUTE UNIT. A/O. TRANSFERED WC TO MIN ASSIST. CL IN REACH. FAMILY IN ROOM.
--- NOTE | 2018-12-28 19:40 | NUR ---
PT LYING IN BED. CL IN REACH. BED IN LOW SIDE RAILS X2. A/O X4. LUNGS CLEAR. BOWEL ACTIVE X4. RESP EVEN AND UNLABORED. DENIES NEEDS BESIDES PAIN IN LEFT KNEE. WILL CONTINUE TO MONITOR.
[2018-12-28 20:16] VITALS: BMI 44.7
[2018-12-28 20:30] VITALS: BP 165/71
--- NOTE | 2018-12-28 23:26 | NUR ---
I have reviewed this patient and I concur with the Shift Assessment completed by the Licensed Practical Nurse today this shift.
--- NOTE | 2018-12-29 01:06 | NUR ---
PT PRESSED CALL LIGHT ABOUT 0040 AND WANTED SOMETHING FOR PAIN. THIS NURSE WENT INTO ROOM AND TOLD PT IT WAS NOT TIME FOR HER NORCO RIGHT NOW. PT THEN PRESSED CALL LIGHT AGAIN AT 0100 ASKING IF SHE COULD HAVE SOMETHING FOR PAIN. NEW ORDER FOR IBUPROFEN/MOTRIN 600MG WAS ADMINISTERED FOR BREAK THROUGH PAIN. THIS NURSE WENT INTO ROOM TO GIVE TO PATIENT AND PATIENT WAS VERY UPSET AND STATED "WHY WAS THIS NOT OFFERED TO ME THE FIRST TIME I ASKED FOR SOMETHING FOR PAIN." THIS NURSE EDUCATED PT THAT SHE ONLY HAD NORCO 10 ON HER ORDERS AND THAT IS WHAT SHE ASKED FOR. PT ASKED "WHY DO I HAVE TO HAVE A ORDER FOR THAT. I SHOULD NOT HAVE TO BECAUSE I AM IN PAIN. DR BAUGH TOLD ME THAT I WILL NOT EXPERIENCE ANY PAIN. THE DOCTOR TOLD ME THAT IT WOULD BE Q4H AND NOT Q6H LIKE IT IS NOW." THIS NURSE EDUCATED THAT "I HAVE TO FOLLOW WHAT ORDERS SAY AND THAT IS WHAT THE DOC ORDERED WHEN YOU GOT ADMITTED IN REHAB." PT STILL NOT HAPPY AND RAISING VOICE AT NURSE. PT STATED " I WILL BE ASKING THE DOCTOR IN THE MORNING TO CHANGE THAT AND TELL HIM THAT IS NOT RIGHT TO WITHHOLD MY PAIN MEDICINE FROM ME AND IT IS NOT RIGHT THAT YOU THE NURSE HAVE TO CALL HIM FOR A ORDER OF PAIN MEDICINE." THIS NURSE EXPLAINED TO PT WELL POSIBLE THAT THIS NURSE UNDERSTANDS HER CONCERNS AND APOLOGIZED THAT THE ORDER WAS NOT THE SAME IT WAS UPSTAIRS. THIS NURSE ALSO STATED "I AM ON YOUR SIDE AND HERE TO TAKE CARE OF YOU AND TO CAUSE NO HARM EVER TO YOU MY PATIENT." PT THEN CALMED DOWN AND THANKED THIS NURSE. MESSAGE LEFT ON ROUNDING SHEET FOR DR. PHILLIPS TO ADDRESS CONCERNS AND TO TALK WITH DR. BAUGH.
--- NOTE | 2018-12-29 02:48 | NUR ---
PT 3D MODELER LIGHT WANTING PAIN MEDICINE. BROUGHT PT NORCO 10 AND PT STATED SOON THIS NURSE WALKED IN ROOM "THAT IBUPROFEN DID NOT WORK" THIS NURSE THEN STATED " IM SORRY THAT WAS THE SAME MEDICATION YOU WERE ON UPSTAIRS FOR BREAKTHROUGH PAIN." PT THEN STATED "WELL IT DIDNT WORK AND I HAVE BEEN LAYING HERE FOR 2 HRS AND 40 MIN IN PAIN." THIS NURSE APOLOGIZED AND ADMINISTERED NORCO AND GAVE PT A HEAT PACK WITH WARM WASH CLOTHS AND HOT WATER IN A ICE PACK BAG. DENIES FURTHER NEEDS. CL IN REACH
[2018-12-29 06:12] LABS: BASOPHILS 0.3 % (0-2); EOSINOPHILS 3.3 % (0-7); HEMATOCRIT 31.6 % (36.0-48.0); HEMOGLOBIN 10.1 g/dL (12-16); IMMATURE GRANULOCYTES 0.4 % (0-5); LYMPHOCYTES 33.7 % (15-50); MCH 26.4 pg (26.0-34.0); MCV 82.7 fL (80.0-100.0); MONOCYTES 8.5 % (2-11); NEUTROPHILS 53.8 % (40-80); PLATELET COUNT 502 10x3/uL (130-400); RBC 3.82 10x6/uL (4.00-5.40); WBC 12.1 10x3/uL (4.8-10.8)
[2018-12-29 06:30] LABS: ANION GAP 11.6 mmol/L (8-16); CALCIUM 8.4 mg/dL (8.5-10.1); CARBON DIOXIDE 27.2 mmol/L (21.0-32.0); CREATININE - SERUM 0.8 mg/dL (0.6-1.3); POTASSIUM - SERUM 3.8 mmol/L (3.5-5.1)
--- NOTE | 2018-12-29 06:43 | NUR ---
PT RESTING QUIETLY. CL IN REACH. WAKES TO VERBAL STIMULI. DENIES NEEDS AT THIS TIME. STATES KNEE IS BURNING AND STINGING. WBC WAS 12.1 THIS AM AND 10.3 ON 12/28/18. NOTE LEFT FOR DR. PHILLIPS. EYES WERE CLOSED. TM
[2018-12-29 07:27] VITALS: BP 171/83
--- NOTE | 2018-12-29 08:13 | NUR ---
PT RESTING IN BED WITH EYES OPEN CALL LIGHT IN REACH NO PROBLEMS WILL MONITER
[2018-12-29 09:02] VITALS: Ht 157.5 cm; Wt 110.7 kg
--- NOTE | 2018-12-29 18:27 | NUR ---
I have reviewed this patient and I concur with the Shift Assessment completed by the Licensed Practical Nurse today this shift.
--- NOTE | 2018-12-29 18:34 | NUR ---
PT RESTING IN BED WITH EYES OPEN CALL LIGHT IN REACH NO PROBLEMS WILL MONITER
--- NOTE | 2018-12-29 19:45 | NUR ---
PT SITTING UP IN BED. CL IN REACH. IN ROOM. PT DENIES NEEDS OR PAIN AT THIS TIME. BED IN LOW SIDE RAILS X2. A/O X4. LUNGS CLEAR. BOWEL ACTIVE X4. LEFT KNEE DRESSING INTACT. RESP EVEN AND UNLABORED. WCTM
[2018-12-29 21:03] VITALS: BP 163/65
--- NOTE | 2018-12-29 23:02 | NUR ---
RECEIVED REPORT FROM OFF GOING NURSE ON PATIENTS CONDITION.
--- NOTE | 2018-12-29 23:09 | NUR ---
I have reviewed this patient and I concur with the Shift Assessment completed by the Licensed Practical Nurse today this shift.
--- NOTE | 2018-12-29 23:49 | NUR ---
PATIENT RESTING QUIETLY WITH EYES CLOSED. RESPIRATIONS EVEN. NO S/S OF DISTRESS. SR UP X 2. BED IN LOWEST POSITION. CALL LIGHT IN REACH.
--- NOTE | 2018-12-30 03:10 | NUR ---
PATIENT RESTING QUIETLY WITH EYES CLOSED. RESPIRATIONS EVEN. NO S/S OF DISTRESS. SR UP X 2. BED IN LOWEST POSITION. CALL LIGHT IN REACH.
[2018-12-30 07:30] LABS: BASOPHILS 0.4 % (0-2); EOSINOPHILS 3.1 % (0-7); HEMATOCRIT 32.1 % (36.0-48.0); HEMOGLOBIN 10.1 g/dL (12-16); IMMATURE GRANULOCYTES 0.4 % (0-5); LYMPHOCYTES 35.9 % (15-50); MCH 26.6 pg (26.0-34.0); MCHC 31.5 g/dL (31.0-37.0); MCV 84.5 fL (80.0-100.0); MEAN PLATELET VOLUME 11.1 fL (7.4-10.4); MONOCYTES 8.9 % (2-11); NEUTROPHILS 51.3 % (40-80); PLATELET COUNT 541 10x3/uL (130-400); RDW 16.2 % (11.5-14.5); WBC 11.9 10x3/uL (4.8-10.8)
[2018-12-30 07:42] LABS: ANION GAP 12.4 mmol/L (8-16); CALCIUM 8.6 mg/dL (8.5-10.1); CARBON DIOXIDE 27.1 mmol/L (21.0-32.0); CREATININE - SERUM 0.8 mg/dL (0.6-1.3); POTASSIUM - SERUM 4.5 mmol/L (3.5-5.1)
[2018-12-30 08:06] VITALS: BP 128/75
--- NOTE | 2018-12-30 12:11 | NUR ---
SITTING UP IN ROOM EATING LUNCH. DENIES NEEDS. BANDAGE ON LLE INTACT. CALL LIGHT IN REACH.
--- NOTE | 2018-12-30 15:03 | NUR ---
PATIENT ADMITTED TO REHAB FROM ACUTE FLOOR. DR. HUMPHREYS IS HER PCP. DME AT HOME IS WALKER, SHOWER CHAIR AND BEDSIDE COMMODE. DISCHARGE PLANS ARE FOR HER TO RETURN HOME. WILL CONTINUE TO FOLLOW WITH PATIENT AND WILL ASSIT NEEDS.
--- NOTE | 2018-12-30 19:35 | NUR ---
GREETED PATIENT AND INTRODUCED MYSELF HER NURSE. PATIENT IS LAYING IN BED ON RIGHT SIDE. RESPIRATIONS EVEN. NO S/S OF DISTRESS. PT STATES THAT HER PAIN IS STILL 6/10 IN HER LEFT KNEE AFTER ADMINISTRATION OF PRN NORCO. WCTM. CALL LIGHT IN [facility]
[2018-12-30 21:19] VITALS: BP 132/66
--- NOTE | 2018-12-31 08:48 | NUR ---
PT HAS BEEN VERY RUDE THIS AM. PT PULLED CORD IN BATHROOM AND WHEN THIS NURSE GOT IN THERE TO HELP HER SHE WAS ALREADY IN HER WHEELCHAIR. PT STATED SHE PUSHED THE NURSE CALL LIGHT AND I EXPLAINED TO HER THAT THE LIGHT WAS NOT ON BUT THE BATHROOM LIGHT WAS AND PT STATED THAT SHE COULD DO IT HERSELF. PT THEN STATED SHE WANTED A SHOWER AT THIS TIME AND I EXPLAINED TO PT THAT SOON I GOT MORNING MED PASS COMPLETED I WOULD ASSIST HER WITH SHOWER. PT STATED SHE IS 72 AND VERY CAPABLE OF GIVING HERSELF A SHOWER. I TOLD PT THAT WAS PERFECTLY FINE AND THAT IS THE GOAL OF REHAB BUT THAT I WOULD LIKE TO ASSIST HER INTO THE SHOWER FOR SAFETY. PT THEN STATED THAT'S FINE I UNDERSTAND YOU HAVE YOUR HANDS FULL. I THEN TOLD PT THAT WE WERE NOT BUSY AND I WOULD BE BACK VERY SOON TO HELP HER. PT DID NOT SEEM SATISIFIED WITH THIS ANSWER INSISTING THAT SHE NEEDED NO HELP AND THAT I COULD LEAVE.
--- NOTE | 2018-12-31 09:36 | NUR ---
ASSISTED PT WITH SHOWER. PT REFUSED TO WASH HER HAIR SINCE WE DO NOT PROVIDE CONDITIONER. PT RESTING IN BED WAITING FOR THERAPY AT THIS TIME AND DENIES NEEDS. WCTM.
[2018-12-31 09:38] VITALS: BP 126/73
[2018-12-31 19:00] VITALS: BP 147/76
--- NOTE | 2018-12-31 19:00 | NUR ---
BEDSIDE REPORT COMPLETE. SITTING UP IN BED VISITING WITH FAMILY. DENIES ANY NEEDS OR PAIN. RR EVEN AND UNLABORED. NO SIGNS OF DISTRESS NOTED. EMPTIED 300ML CLEAR YELLOW URINE FROM URINAL. CALL LIGHT WITHIN REACH, FALL PRECAUTIONS IN PLACE. VS STABLE. WILL CONTINUE TO MONITOR
--- NOTE | 2018-12-31 19:00 | NUR ---
BEDSIDE REPORT COMPLETE. SITTING UP ON SIDE OF BED VISITING WITH . DENIES ANY NEEDS OR PAIN. PT STATES "MY PAIN IS MUCH BETTER NOW WITH NEW PAIN MEDICATION". VS STABLE. NO SIGNS OF DISTRESS NOTED. LEFT KNEE INCISION WITH GRACIELA FOREIGN CAR MECHANIC SLIGHTLY REDDENED AND WARM TO TOUCH. CALL LIGHT WITHIN REACH, FALL PRECAUTIONS IN PLACE. WILL CONTINUE TO MONITOR
--- NOTE | 2019-01-01 00:44 | NUR ---
QUIET HOURS. LYING IN BED EYES CLOSED RESTING. RR EVEN AND UNLABORED. WILL CONTINUE TO MONITOR
--- NOTE | 2019-01-01 03:22 | NUR ---
PT REQUESTED PAIN MEDICATION 10/24 LEFT KNEE PAIN. ADMININSTERED PERCOCET ORDERED. PLACED ICE PACK ON LEFT KNEE PER PT REQUEST.
--- NOTE | 2019-01-01 06:21 | NUR ---
LYING IN BED EYES CLOSED RESTING. RR EVEN AND UNLABORED. WILL CONTINUE TO MONITOR
[2019-01-01 07:30] VITALS: BP 131/67
--- NOTE | 2019-01-01 12:00 | NUR ---
RESTING QUIETLY IN BED. NO S/S DISTRESS. CALL LIGHT IN REACH
--- NOTE | 2019-01-01 18:31 | NUR ---
RESTING QUIETLY IN BED. HAS C/O PAIN ALL DAY AND ASK FOR PAIN MEDS BEFORE THE 4 HOUR WINDOW WAS UP EVERY TIME. CALL LIGHT IN REACH
--- NOTE | 2019-01-01 19:00 | NUR ---
BEDSIDE REPORT COMPLETE. LYING IN BED SUPINE ALERT AND ORIENTED X4. DENIES ANY NEEDS OR PAIN. NO SIGNS OF DISTRESS NOTED. CALL LIGHT WITHIN REACH, FALL PRECAUTIONS IN PLACE. WILL CONTINUE TO MONITOR
[2019-01-01 21:40] VITALS: BP 142/67
--- NOTE | 2019-01-02 00:54 | NUR ---
QUIET HOURS. LYING IN BED SUPINE EYES CLOSED RESTING. RR EVEN AND UNLABORED. WILL CONTINUE TO MONITOR
--- NOTE | 2019-01-02 02:55 | NUR ---
LYING IN BED ON RIGHT SIDE EYES CLOSED RESTING. NO SIGNS OF DISTRESS NOTED. WILL CONTINUE TO MONITOR
--- NOTE | 2019-01-02 06:38 | NUR ---
LYING IN BED EYES CLOSED RESTING. EASILY AROUSED WITH STIMULI. C/O 4/10 PAIN IN LEFT KNEE. NO OTHER CONCERNS VOICED.
[2019-01-02 07:12] LABS: CALC OSMOLALITY 279 mosm/kg (275-300); CALCIUM 8.7 mg/dL (8.5-10.1); CARBON DIOXIDE 27.2 mmol/L (21.0-32.0); CHLORIDE - SERUM 105 mmol/L (98-107); CREATININE - SERUM 0.7 mg/dL (0.6-1.3); GLUCOSE 114 mg/dL (74-106); SODIUM 140 mmol/L (136-145); UREA NITROGEN 12 mg/dL (7-18); eGFR NON AFRICAN AMERICAN 87 mL/min (90-120)
[2019-01-02 08:05] LABS: BASOPHILS 0.4 % (0-2); EOSINOPHILS 3.6 % (0-7); HEMATOCRIT 31.9 % (36.0-48.0); HEMOGLOBIN 9.9 g/dL (12-16); IMMATURE GRANULOCYTES 0.4 % (0-5); MCH 26.6 pg (26.0-34.0); MCV 85.8 fL (80.0-100.0); MEAN PLATELET VOLUME 11.3 fL (7.4-10.4); MONOCYTES 8.4 % (2-11); NEUTROPHILS 45.2 % (40-80); PLATELET COUNT 606 10x3/uL (130-400); RBC 3.72 10x6/uL (4.00-5.40); RDW 16.5 % (11.5-14.5); WBC 9.2 10x3/uL (4.8-10.8)
[2019-01-02 08:23] VITALS: BP 135/63
--- NOTE | 2019-01-02 14:59 | NUR ---
Nutrition Follow-up: Diet: Regular PO intake: 77% average Wt: 243# (12/29/18)- wt trend stable Labs and meds reviewed Last BM 12/28/18 (x 5 days) Consider increase bowel regimen RD Following
--- NOTE | 2019-01-02 15:05 | NUR ---
Diet changed to diabetic diet d/t pt T2DM and mildly elevated glucose.
--- NOTE | 2019-01-02 18:07 | NUR ---
STAYS IN BED ALL THE TIME SHE IS NOT IN P.T. ENCOURAGED HER TO GET UP MORE AND DO MORE FOR HERSELF. SHE ASKS FOR PAIN MEDS BEFORE IT IS DUE EACH TIME.
--- NOTE | 2019-01-02 21:05 | NUR ---
PT REST IN BED AND STATE:" SHE GO HOME TOMORROW."
[2019-01-02 22:21] VITALS: BP 161/74
--- NOTE | 2019-01-03 01:28 | NUR ---
REST QUIETLY IN BED. NO S/S OF DISTRESS. CALL LIGHT IN REACH,
--- NOTE | 2019-01-03 04:01 | NUR ---
I have reviewed this patient and I concur with the Shift Assessment completed by the Licensed Practical Nurse today this shift.
[2019-01-03 08:22] VITALS: BP 158/65
--- NOTE | 2019-01-03 09:30 | NUR ---
PT AM MEDS ADMINISTERED. 26 GRACIELA DISCONTINUED FROM PT LEFT KNEE. STERI STRIPS PLACED. INCISION WELL APPROX. WCTM.
--- NOTE | 2019-01-03 09:55 | NUR ---
PATIENT DISCHARGING HOME TODAY WITH FAMILY. [facility] WILL PROVIDE THERAPY AT HOME. NO NEW DME NEEDED AT THIS TIME. DR. HUMPHREYS 01/17/19 @ 9:30, DR. MONTES 01/09/19 @ 1:00. PATIENT CHOICE FORM AND IMFM FORMS SIGNED, COPY GIVEN TO PATIENT AND FILED IN CHART. DISCHARGE INSTRUCTIONS WITH [facility] FAXED TO PCP, HOME HEALTH AND REVIEWED WITH PATIENT.
--- NOTE | 2019-01-03 10:44 | RHP ---
PATIENT: ALEXYS JENSEN MEDICAL RECORD: [id number] ACCOUNT: [id number] LOCATION:[facility]1115 : [birth year] ADMISSION DATE: 12/28/18 REHABILITATION HISTORY AND PHYSICAL EXAMINATION POST ADMISSION PHYSICIAN EXAMINATION DATE OF ADMISSION: 12/28/2018. ADMITTING DIAGNOSIS: Metabolic encephalopathy. HISTORY OF PRESENT ILLNESS: The patient is a 73-year-old female patient, who had osteoarthritis of her left knee. On 12/21/2018, she had an elective TKA. Her postop course was complicated by fever with a T-max of greater than 100, leukocytosis with a white count of around 16,000. She had acute mental status changes and deep vein thrombosis noted in the popliteal vein and posterior tibial vein for 4 days postop, she was confused, disoriented, agitated and difficult to reorient. CT of her head showed no acute findings. Previously, she was moderately independent with rolling walker and lives in a 2-story home with 14 stairs to climb. Currently, she is set up back to her baseline, mentally she is alert and oriented. She is min to mod assist for ADLs and mobility. She is impulsive, requires continuous cues for safety, balance and gait. Hopefully, we can get this done during the rehab and get her back to her home environment. COMORBIDITIES: Include acute blood loss anemia, hypertension, hypothyroidism, chronic microcytic anemia, diverticular disease, chronic back pain, fibromyalgia, depression, anxiety, post-menopausal, obesity, postop fever, hyponatremia, hyperglycemia, osteoarthritis of her left knee, and status post left total knee arthroscopy. PAST MEDICAL HISTORY: Significant for thyroid problems. She has had a history of parathyroid problems. She has got a history of hypertension, acid reflux, diverticular disease, arthritis, chronic back pain, fibromyalgia, osteoarthritis in both knees, menopause, depression and anxiety. PAST SURGICAL HISTORY: Includes appendectomy, splenectomy, bilateral tubal ligation, has had gallbladder removal, esophageal dilatation, incisional hernia repair. She has had an ORIF of her ankle, back surgery. ALLERGIES: IODINATED CONTRAST, SULFA, LEVAQUIN, AND QUININE. CURRENT MEDICATIONS: Include Motrin 600 mg t.i.d. p.r.n. She is on Tylenol 650 q.4 hours p.r.n., Protonix 40 mg daily, guaifenesin 1200 mg b.i.d., Colace 100 mg b.i.d., Tessalon Perles 100 mg t.i.d., [place] 10/325 one tab q.6 hours p.r.n., and Lovenox 110 mg subq b.i.d. HABITS: No current alcohol or tobacco use. FAMILY HISTORY: Noncontributory. SOCIAL HISTORY: The patient hopes to return home and get back to her prior level of functioning. REVIEW OF SYSTEMS: GENERAL: Denies weakness or fatigue. HISTORY AND PHYSICAL [id number] ALEXYS JENSEN HEENT: Denies cold, cough, or congestion. CARDIOVASCULAR: Denies chest pain. PHYSICAL EXAMINATION: VITAL SIGNS: Stable, afebrile. GENERAL: A morbidly obese female in no acute distress, alert upon exam. HEENT: Normocephalic and atraumatic. Mucosa moist. NECK: Supple, with no lymphadenopathy. LUNGS: Clear at this time. HEART: Regular rate and rhythm. ABDOMEN: Soft, benign, and nondistended. Positive bowel sounds times 4. EXTREMITIES: No clubbing, cyanosis or edema. Postop area looks good. NEUROLOGIC: She has got 3/5 proximal muscle strength in her lower extremities. LABORATORY DATA: White count is 12.1, H&H of 10 and 31, and platelet count was noted to be 502. Her sodium is 138, potassium 3.8, BUN and creatinine of 15 and 0.8, blood sugar is noted to be 115. ASSESSMENT: This is a 73-year-old female patient admitted to the rehab with a working diagnosis of metabolic encephalopathy status post ORIF of her knee. The patient has potential to make improvement. We instituted the following multidisciplinary therapies including, but not limited to physical, occupational, respiratory, speech, nutritional services, prosthetics, and orthotics. Given her complex medical condition and risk for more complications, rehabilitation services cannot be provided at a low level of care such a nursing home facility. PLAN: 1. Admit to [facility] for an intensive inpatient therapy to include the following disciplines: A. Physical therapy to improve gait, all transfer skills and bed mobility to a modified independent level. B. Occupational therapy to improve activities of daily living to a modified independent level. C. Case management to assist with discharge planning and placement options. D. Nutrition to assist with nutritional needs. E. Rehabilitation nursing to assist in monitoring the patient's underlying medical conditions and to assist with any type of bowel or bladder management. 2. The patient's current medications and medical care will be continued. 3. The patient will be placed on standard fall precautions. 4. We will adjust her pain medications. 5. We will add an anxiolytic. 6. I will follow up in the a.m. TRANSINT:[id number] Voice Confirmation ID: [id number] DOCUMENT ID: [id number] [facility] notes whether there has been none or any medical/functional change since admission: - No change since pre-admission screen. [facility] attests patient continues to be appropriate for IRF: - Continues to be appropriate. HISTORY AND PHYSICAL [id number] ALEXYS JENSEN,ANNIE BIRD MD at 1044 CC: [id number] DICTATION DATE: 12/29/18 0848 INSOLE TACK PULLER HAND: 12/29/18 0911 ADM IN [place] [address] [place] [address]
[2019-01-03] MEDS ORDERED: PERCOCET 10-321 EAC1 PO (10:56)
[2019-01-03] MEDS ORDERED: HYDROCODON-ACE1 EA10 PO (11:00)
--- NOTE | 2019-01-03 11:45 | NUR ---
PT ESCORTED OUT VIA WHEELCHAIR BY HOSPITAL STAFF. PT DISCHARGING HOME WITH . DISCHARGE INSTRUCTIONS REV'D AND MEDICATIONS CALLED IN TO [facility] ON [address].
--- NOTE | 2019-02-07 10:09 | DS ---
PATIENT:ALEXYS JENSEN :47 MEDICAL RECORD: [id number] DISCHARGE SUMMARY ADMISSION DATE: 12/28/18 DISCHARGE DATE: 01/03/19 This is a discharge dated 01/03/2019 from inpatient rehabilitation. PRIMARY DIAGNOSIS: Decreased functional ability and ability to provide activities of daily living secondary to metabolic encephalopathy. SECONDARY DIAGNOSES: 1. Status post left total knee arthroplasty. 2. Osteoarthritis. 3. Acute blood loss anemia. 4. Hypertension. 5. Hypothyroidism. 6. Diverticular disease. 7. Obesity. 8. Fibromyalgia. 9. Anxiety/depression. 10. Left deep venous thrombosis. 11. Diabetes type 2. HOSPITAL COURSE: Full H&P is located elsewhere on the chart on this 73-year-old female who was admitted to inpatient rehab for physical therapy and occupational therapy to improve gait, transfer skills, bed mobility, and activities of daily living to a modified independent level. She was evaluated by PT and OT and their plans of care were followed. She required group home care for observation and assessment and medication administration as well as wound care and monitoring of surgical incisions. Electrolytes were managed by protocol. She remained on appropriate home medications. Medications were adjusted for adequate pain control. She was cooperative with therapies, progressing towards goals. Case management was involved for discharge planning. She was considered stable for discharge on 01/03/2019, having met 1/3 long-term PT goals and making some progress with occupational therapy. Her therapy was hampered by pain. It was recommended to continue therapy at the time of discharge. DISCHARGE MEDICATIONS: As per discharge medication reconciliation. DISCHARGE DISPOSITION: The patient is discharged home. She will continue her current diet and level of activity. She will have [facility] for continued nursing, PT and OT. She will follow up with primary care and specialist as directed. At least 30 minutes was spent in this discharge activity. TRANSINT:[id number] Voice Confirmation ID: [id number] DOCUMENT ID: [id number] Dictated By: BISHNU POP I have interviewed/examined the above patient and agree with these documented findings. DISCHARGE SUMMARY REPORT [id number] MIKEY,ALEXYS PHILLIPS,ANNIE BIRD MD at 1011 at 1009 CC: [id number] DICTATION DATE: 02/05/19 1019 LINE UP WORKER: 02/06/19 0242 DIS IN 01/03/19 [facility] [address] [place] [address]
== END 2019-01-03 12:18 | disposition home health service (06) | DRG 71 ==
LOC: D.REHAB 18:30
PROVIDERS: ADMIT Emergency Medicine; ATTEND Emergency Medicine
DX: G93.41 Metabolic encephalopathy (principal); D62 Acute posthemorrhagic anemia; E87.1 Hypo-osmolality and hyponatremia; I82.402 Acute embolism and thrombosis of unspecified deep veins of left lower extremity; I10 Essential (primary) hypertension; E03.9 Hypothyroidism, unspecified; D50.9 Iron deficiency anemia, unspecified; E66.9 Obesity, unspecified; F41.8 Other specified anxiety disorders; G89.29 Other chronic pain; M17.12 Unilateral primary osteoarthritis, left knee; Z96.652 Presence of left artificial knee joint; R50.82 Postprocedural fever; E11.65 Type 2 diabetes mellitus with hyperglycemia

== ENCOUNTER 2019-01-11 17:41 | Inpatient (IN) | payer MEDICARE, OTHER ==
[~2019-01-11] VITALS: Ht 157.5 cm; Wt 109.1 kg
[~2019-01-11 17:41] MED LIST changes: +PERCOCET 10-321 EAC1 PO
[2019-01-11] MEDS ORDERED: XARELTO10 MG PO (17:47)
[2019-01-11 18:41] LABS: BASOPHILS 0.7 % (0-2); EOSINOPHILS 4.1 % (0-7); HEMATOCRIT 34.4 % (36.0-48.0); HEMOGLOBIN 10.7 g/dL (12-16); IMMATURE GRANULOCYTES 0.1 % (0-5); LYMPHOCYTES 42.4 % (15-50); MCH 26.8 pg (26.0-34.0); MCHC 31.1 g/dL (31.0-37.0); MCV 86.2 fL (80.0-100.0); MEAN PLATELET VOLUME 11.1 fL (7.4-10.4); MONOCYTES 7.7 % (2-11); PLATELET COUNT 551 10x3/uL (130-400); RBC 3.99 10x6/uL (4.00-5.40); RDW 16.9 % (11.5-14.5); WBC 8.1 10x3/uL (4.8-10.8)
[2019-01-11 19:03] LABS: ALBUMIN 3.2 g/dL (3.4-5.0); ANION GAP 11.6 mmol/L (8-16); BILIRUBIN - TOTAL 0.3 mg/dL (0.2-1.3); CARBON DIOXIDE 27.8 mmol/L (21.0-32.0); POTASSIUM - SERUM 4.4 mmol/L (3.5-5.1); PROTEIN - SERUM 7.3 g/dL (6.4-8.2)
[2019-01-11 19:05] LABS: APTT 34.5 SECONDS (22.8-39.4); INR 1.52 (0.85-1.17); PROTIME 17.7 SECONDS (11.6-15.0)
--- NOTE | 2019-01-11 20:00 | NUR ---
IV SITE INFILTRATED, RELOCATED 22GA TO RIGHT HAND. PT TOLERATED WELL
[2019-01-11 20:53] VITALS: BP 128/67
--- NOTE | 2019-01-11 21:19 | NUR ---
SANDWICH AND DRINK PROVIDED.
--- NOTE | 2019-01-11 21:23 | NUR ---
CALLED REPORT ROOM NOT CLEAN, NOT EVEN STARTED. INFORMED CHRISTINA.
--- NOTE | 2019-01-11 21:45 | NUR ---
CLEOCIN INFUSION COMPLETE AT THIS TIME.
[2019-01-11 21:52] LABS: ERYTHROCYTE SEDIMENTATION RATE 28 mm/hr (0-30)
--- NOTE | 2019-01-11 22:20 | NUR ---
RECEIVED PT FROM ER VIA W/C. C/O PAIN IN LT KNEE AND LT HIP 8 ON PAIN SCALE. RECEIVED MORPHINE IN ER. ANXIOUS AND AGITATED. MULTIPLE COMPLAINTS ABOUT HAVING TO WAIT OVER AN HOUR IN THE ER AND BEING IN PAIN THERE. SALINE LOCK NOTED TO RT HAND. LT KNEE IS RED, SWOLLEN, WARM. PEDAL PULSES GOOD BILAT. V/S STABLE. SR ELEVATED X1. CL IN REACH. ENCOURAGED TO CALL STAFF FOR ASSISTANCE WITH AMB.
[2019-01-11] MEDS ORDERED: HYDROCODON-ACE1 EAC7 PO (22:52)
--- NOTE | 2019-01-11 23:40 | NUR ---
C/O PAIN IN LT KNEE. AGITATED AND TELLING NURSE THAT SHE EXPECTS TO BE PAIN FREE WHILE IN THE HOSPITAL. INFORMED PT THAT SHE COULD HAVE MORPHINE AT 2400 BUT I COULD GIVE IT A FEW MINUTES EARLY. SHE PROCEEDED TO ARGUE WITH STAFF AND TELL THIS ELECTRIC LOCOMOTIVE FIRER/FIREMAN THAT NURSES AND DOCTORS DONT CARE IF PTS HURT. SHE STATED SHE SHOULD BE PAIN FREE WHILE SHE IS HERE. ATTEMPTED TO EXPLAIN THAT EACH PT IS DIFFERENT AND RESPONDS TO PAIN MED DIFFERENTLY AND THAT THIS ELECTRIC LOCOMOTIVE FIRER/FIREMAN COULD NOT GUARANTEE THAT SHE WOULD BE PAIN FREE BECAUSE SHE HAS AN INFECTION IN HER KNEE AND THAT UNTIL IT IS RESOLVED, THAT SHE WOULD MOST LIKELY EXPERIENCE SOME PAIN. PT NOT RECEPTIVE. AT BEDSIDE TELLING PT THAT STAFF WAS DOING WHAT THEY COULD DO BY FOLLOWING MD ORDERS. NOTIFIED JESSICA RICHARDSON OF PT C/O PAIN AND WANTING HOME MEDS RESTARTED. HE SAID HE WOULD REVIEW THEM AND COME SEE PT BUT HE HAD OTHER PTS HE HAS TO SEE. INFORMED PT OF THIS. SHE VERBALIZED UNDERSTANDING.
--- NOTE | 2019-01-11 23:56 | NUR ---
MEDICATED WITH MORPHINE AND ZOFRAN FOR C/O PAIN IN LT KNEE RATING 10. CL IN REACH.
--- NOTE | 2019-01-12 00:39 | NUR ---
RATES PAIN IN KNEE A 5 ON PAIN SCALE. CL IN REACH.
[2019-01-12 00:46] VITALS: BP 143/78; Ht 157.5 cm; Wt 109.1 kg
--- NOTE | 2019-01-12 02:45 | NUR ---
INFORMED PT THAT SCDS WERE ORDERED AND EXPLAINED RATIONALE. PT STATES,"I KNOW WHAT THEY ARE. THEY KEEP YOU FROM GETTING UP TO GO TO THE BATHROOM, YOU GET TANGLED UP IN THEM, THEY DONT WORK AND MAKE NOISE." ASKED PT IF SHE WAS REFUSING THEM AND PT KEPT COMPLAINING. ASKED PT TO GIVE STAFF A YES OR NO ANSWER AND SHE STATES, "YEAH, I GUESS." SCDS PLACED ON PT AT THIS TIME. PT THEN TELLS STAFF THAT THE STAFF HERE DOESNT CARE ABOUT HOW THE PTS FEEL. PT BLAMING STAFF FOR EVERYTHING. STATES THE SCDS DIDNT WORK BEFORE AND THATS WHY SHE HAS A BLOOD CLOT. PT NOT RECEPTIVE TO LEARNING AND UNABLE TO SATISFY. REPORTED THIS TO CHARGE NURSE WHO HAS OVERHEARD HER TALKING DOWN TO STAFF.
[2019-01-12 04:00] VITALS: BP 121/68
--- NOTE | 2019-01-12 04:20 | NUR ---
MEDICATED WITH MORPHINE AND ZOFRAN FOR C/O LT HIP AND KNEE PAIN. CL IN REACH.
[2019-01-12 07:48] LABS: ANION GAP 12.9 mmol/L (8-16); CALCIUM 8.7 mg/dL (8.5-10.1); CARBON DIOXIDE 28.4 mmol/L (21.0-32.0); CREATININE - SERUM 0.9 mg/dL (0.6-1.3); MAGNESIUM - SERUM 1.9 mg/dL (1.8-2.4); PHOSPHOROUS 3.9 mg/dL (2.5-4.9); POTASSIUM - SERUM 4.3 mmol/L (3.5-5.1)
[2019-01-12 07:51] LABS: BASOPHILS 0.6 % (0-2); EOSINOPHILS 5.8 % (0-7); HEMATOCRIT 34.5 % (36.0-48.0); HEMOGLOBIN 10.7 g/dL (12-16); IMMATURE GRANULOCYTES 0.1 % (0-5); LYMPHOCYTES 49.6 % (15-50); MCH 26.7 pg (26.0-34.0); MEAN PLATELET VOLUME 11.4 fL (7.4-10.4); MONOCYTES 8.3 % (2-11); NEUTROPHILS 35.6 % (40-80); PLATELET COUNT 562 10x3/uL (130-400); RBC 4.01 10x6/uL (4.00-5.40); RDW 16.9 % (11.5-14.5)
--- NOTE | 2019-01-12 08:00 | NUR ---
ALERT AND ORIENTED. LUNGS CLEAR BILATERALLY IN ALL STONER. HEART SOUNDS S1 AND S2 HEARD IN ALL STONER. BOWEL SOUNDS ACTIVE X 4. MILD REDNESS AND SWELLING TO LEFT KNEE. DENIES PAIN. DENIES NEEDS. BED LOW. CALL PÉREZ AND PERSONAL ITEMS IN REACH. IV TO RIGHT HAND PATENT WITHOUT REDNESS. WILL CONTINUE TO MONITOR.
--- NOTE | 2019-01-12 08:09 | NUR ---
SPOKE WITH FATIMAH BECKHAM ABOUT PATIENT WEARING SCDS. STATES PATIENT SHOULD NOT HAVE SCD ON LEG WITH DVT. SCD REMOVED FROM LEFT LEG.
--- NOTE | 2019-01-12 08:22 | NUR ---
SPOKE WITH DR MONTES WHO STATED APPLY PLEXI PULSE BOOTS IN PLACE OF SCDS. WILL APPLY.
--- NOTE | 2019-01-12 09:20 | NUR ---
REFUSED PLEXI BOOTS. STATES MAKE KNEE HURT.
[2019-01-12 09:39] VITALS: BP 112/64
--- NOTE | 2019-01-12 10:57 | NUR ---
BED ALARM REFUSAL FORM SIGNED.
[2019-01-12 11:02] LABS: EOS BF 2 %; MACROPHAGES BF 21 %; NEUT - BF 57 %
[2019-01-12 11:56] VITALS: BP 126/57
--- NOTE | 2019-01-12 15:26 | NUR ---
RESTING IN BED. DENIES PAIN. DENIES NEEDS. WILL CONTINUE TO MONITOR.
[2019-01-12 15:45] VITALS: BP 114/58
--- NOTE | 2019-01-12 17:06 | NUR ---
EDUCATION PROVIDED ON NEED FOR UA. HAT IN TOILET. COLLECTION CUP IN ROOM. VERBALIZED UNDERSTANDING.
[2019-01-12 18:14] LABS: APPEARANCE CLEAR (CLEAR); COLOR YELLOW (YELLOW)
[2019-01-12 18:15] LABS: BACTERIA FEW /hpf (NONE SEEN); BILIRUBIN NEGATIVE (NEGATIVE); EPITHELIAL CELLS 0-5 /hpf (0-5); GLUCOSE NEGATIVE (NEGATIVE); KETONE NEGATIVE (NEGATIVE); NITRITE NEGATIVE (NEGATIVE); PROTEIN NEGATIVE (NEGATIVE); RED CELLS - URINE RARE /hpf (0-5); SPECIFIC GRAVITY 1.015 (1.005-1.020); UROBILINOGEN NORMAL (NORMAL); WHITE CELLS - URINE 0-5 /hpf (0-5)
--- NOTE | 2019-01-12 18:23 | NUR ---
RESTING IN BED. DENIES NEEDS. BED LOW. CALL PÉREZ AND PERSONAL ITEMS IN REACH. WILL CONTINUE TO MONITOR.
--- NOTE | 2019-01-12 19:50 | NUR ---
LYING IN BED. ALERT AND ORIENTED X4. RATES PAIN IN LT KNEE 6 BUT STATES IT FEELS BETTER. EDEMA NOTED TO BLE. BANDAID NOTED TO LT KNEE. LT KNEE IS RED AND WARM TO TOUCH. SALINE LOCK NOTED TO RT HAND. RESP EVEN AND NONLABORED. REFUSES BED ALARM. SR ELEVATED X2. CL IN REACH.
[2019-01-12 20:00] VITALS: BP 128/66
--- NOTE | 2019-01-13 01:00 | NUR ---
HAS RESTED WELL SO FAR THIS SHIFT. LYING IN BED WITH EYES CLOSED. RESP EVEN AND NONLABORED. NO DISTRESS. CL IN REACH.
--- NOTE | 2019-01-13 03:40 | NUR ---
MEDICATED WITH NORCO FOR C/O LT KNEE PAIN. CL IN REACH.
[2019-01-13 04:00] VITALS: BP 127/70
--- NOTE | 2019-01-13 05:30 | NUR ---
AMBULATED IN HALLWAY WITH WALKER AROUND UNIT. SHOWER GIVEN AFTER AMBULATING IN [place].
--- NOTE | 2019-01-13 06:05 | NUR ---
MEDICATED WITH MORPHINE FOR C/O PAIN IN LT KNEE RATING 10. SMILING, TALKATIVE AND LAUGHING. NO DISTRESS. CL IN REACH.
[2019-01-13 06:32] LABS: BASOPHILS 0.7 % (0-2); EOSINOPHILS 4.7 % (0-7); HEMATOCRIT 33.7 % (36.0-48.0); HEMOGLOBIN 10.4 g/dL (12-16); IMMATURE GRANULOCYTES 0.1 % (0-5); LYMPHOCYTES 45.5 % (15-50); MCH 26.7 pg (26.0-34.0); MCHC 30.9 g/dL (31.0-37.0); MCV 86.6 fL (80.0-100.0); MEAN PLATELET VOLUME 11.7 fL (7.4-10.4); MONOCYTES 7.8 % (2-11); NEUTROPHILS 41.2 % (40-80); PLATELET COUNT 536 10x3/uL (130-400); RBC 3.89 10x6/uL (4.00-5.40); RDW 17.2 % (11.5-14.5); WBC 7.4 10x3/uL (4.8-10.8)
[2019-01-13 06:57] LABS: CALCIUM 8.6 mg/dL (8.5-10.1); CARBON DIOXIDE 28.3 mmol/L (21.0-32.0); CREATININE - SERUM 0.9 mg/dL (0.6-1.3); MAGNESIUM - SERUM 1.9 mg/dL (1.8-2.4); PHOSPHOROUS 3.3 mg/dL (2.5-4.9); POTASSIUM - SERUM 4.3 mmol/L (3.5-5.1)
[2019-01-13 07:50] VITALS: BP 111/64
--- NOTE | 2019-01-13 08:18 | NUR ---
ALERT AND ORIENTED. LUNGS CLEAR BILATERALLY IN ALL STONER. HEART SOUND S1 AN S2 HEARD IN ALL FEILDS. BOWEL SOUNDS ACTIVE X 4. SKIN INTACT WITHOUT REDNESS. DECREASED SWELLING NOTED TO LEFT KNEE. IV TO RIGHT HAND PATENT WITHOUT REDNESS. DENIES PAIN. DENIES NEEDS. WILL CONTINUE TO MONITOR.
[2019-01-13] MEDS ORDERED: CLEOCIN HCL300 MG PO (11:01)
--- NOTE | 2019-01-13 12:10 | NUR ---
DISCHARGE EDUCATION PROVIDED BOTH WRITTEN AND VERBAL. VERBALIZED UNDERSTANDING. DENIES FURTHER QUESTIONS. IV REMOVED FROM RIGHT HAND WITH TIP INTACT. WAITING FOR TO ASSISTED LIVING MANAGER FROM HOSPITAL. WILL CONTINUE TO MONITOR.
--- NOTE | 2019-01-13 12:22 | MORECARE ---
CASE MANAGEMENT DISCHARGE SUMMARY PATIENT: ALEXYS MIGUEL UNIT: [id number] ADM DATE: 01/11/19 AGE: 73 : 46 SEX: F ROOM/BED: D.2225 AUTHOR: MARILU CASTILLO PHYSICIAN: REFERRING PHYSICIAN: ANNE-MARIE DO MD DATE OF SERVICE: 01/13/19 Discharge Plan Patient Name: ALEXYS MIGUEL Facility: [facility]:[place] : 1945 Planned Disposition: Home Hlth Svc w Plan Readm Anticipated Discharge Date: 01/13/19 Discharge Date: Expected LOS: 2 Initial Reviewer: [email or web address] Initial Review Date: 01/13/2019 Generated: 01/13/19 1:22 pm DCPIA - Discharge Planning Initial Assessment Updated by [email or web address]: Sandee Potter on 01/13/19 12:20 pm * Is the patient Alert and Oriented? Yes * How many steps to enter\exit or inside your home? 05/30 * PCP Dr. Dietz * Pharmacy [facility] * Preadmission Environment Home with Family * ADLs Partial Dependent * Partial ADLs (Assistance needed) Ambulation * Equipment Bedside Commode Other Shower Chair Walker * Other Equipment Rollator walker * List name and contact numbers for known caregivers / representatives who currently or will assist patient after discharge: Garcia Miguel - [facility] - [phone] * Verbal permission to speak to the caregivers and representatives has been obtained from the patient. Yes * Community resources currently utilized Home Health * Please name any agencies selected above. [facility] * Additional services required to return to the preadmission environment? No * Can the patient safely return to the preadmission environment? Yes * Has this patient been hospitalized within the prior 30 days at any hospital? Yes External Providers External Provider: [facility] Contact Date: Service Request Date: Service Type: Resolution: Reviewer: Comments: Patient Name: ALEXYS MIGUEL Page [id number] at 1222 All edits/amendments must be made on the electronic document DICTATION DATE: 01/13/19 1222 FARM ASSISTANT: JOE 01/13/19 1222 RPT#: [id number] DC DATE: STATUS: ADM IN [facility] [address] [place] [address] END OF REPORT
--- NOTE | 2019-01-13 12:26 | NUR ---
PATIENT DISCHARGED HOME WITH WITH ALL BELONGINGS.
--- NOTE | 2019-01-13 12:33 | MORECARE ---
CASE MANAGEMENT DISCHARGE SUMMARY PATIENT: ALEXYS MIGUEL UNIT: [id number] ADM DATE: 01/11/19 AGE: 73 : 46 SEX: F ROOM/BED: D.2225 AUTHOR: MARILU CASTILLO PHYSICIAN: REFERRING PHYSICIAN: ANNE-MARIE DO MD DATE OF SERVICE: 01/13/19 Discharge Plan Patient Name: ALEXYS MIGUEL Facility: [facility]:[place] : 1945 Planned Disposition: Home Hlth Svc w Plan Readm Anticipated Discharge Date: 01/13/19 Discharge Date: Expected LOS: 2 Initial Reviewer: [email or web address] Initial Review Date: 01/13/2019 Generated: 01/13/19 1:33 pm Comments DCP- Discharge Planning Updated by [email or web address]: Sandee Potter on 01/13/19 11:[address] Patient Name: ALEXYS MIGUEL Admission Status: ER Accout number: [id number] Admission Date: 01-11-2019 : 1945 Admission Diagnosis: Attending: ANNE-MARIE DO Current LOS: 2 Anticipated DC Date: 01-13-2019 Planned Disposition: Home Hlth Svc w Plan Readm Primary Insurance: MEDICARE A & B Discharge Planning Comments: Received discharge orders. CM met with patient, she is alone in the room. I discussed the availability of SNF, rehab, home health and DME. She is current with [facility] and would like this resumed for PT. I called and spoke with Bharati at [place] and clinical/order faxed. She states she has all the DME she needs. States she refused a CPM and her doctor said it was ok. States her will pick her up on discharge. States she was able to climb their stairs at home the first day she went home post op. Home today with [facility]. Decoration Checker: Sandee Potter DCPIA - Discharge Planning Initial Assessment Updated by [email or web address]: Sandee Potter on 01/13/19 12:20 pm * Is the patient Alert and Oriented? Yes * How many steps to enter\exit or inside your home? 05/30 * PCP Dr. Dietz * Pharmacy [facility] * Preadmission Environment Home with Family * ADLs Partial Dependent * Partial ADLs (Assistance needed) Ambulation * Equipment Bedside Commode Other Shower Chair Walker * Other Equipment Rollator walker * List name and contact numbers for known caregivers / representatives who currently or will assist patient after discharge: Garcia Miguel - spouse - [phone] * Verbal permission to speak to the caregivers and representatives has been obtained from the patient. Yes * Community resources currently utilized Home Health * Please name any agencies selected above. [facility] * Additional services required to return to the preadmission environment? No * Can the patient safely return to the preadmission environment? Yes * Has this patient been hospitalized within the prior 30 days at any hospital? Yes Coverage Notice Reviewer: [email or web address] Danielle Potter Notice Issued Date-Time: 01/13/2019 12:24 Notice Type: Patient Choice Letter Notice Delivered To: Patient Relationship to Patient: Self Property Manager Name: Delivery Method: HAND - Hand Delivered Mayte Days: Prior Verbal Notification: Recipient Understood Notice: Yes Recipient Signature: Yes Med Rec Note Co-signed by Attending: Coverage Notice Comment: GLORY for [facility] Last DP export: 01/13/19 11:22 a Patient Name: ALEXYS MIGUEL Page [id number] at 1233 All edits/amendments must be made on the electronic document DICTATION DATE: 01/13/19 1233 SENIOR FACILITIES MANAGER: JOE 01/13/19 1233 RPT#: [id number] DC DATE:01/13/19 STATUS: DIS IN [facility] [address] [place] [address] END OF REPORT
--- NOTE | 2019-01-14 12:11 | MORECARE ---
CASE MANAGEMENT DISCHARGE SUMMARY PATIENT: ALEXYS MIGUEL UNIT: [id number] ADM DATE: 01/11/19 AGE: 73 : 46 SEX: F ROOM/BED: D.2225 AUTHOR: JONATHANDOC PHYSICIAN: REFERRING PHYSICIAN: ANNE-MARIE DO MD DATE OF SERVICE: 01/14/19 Discharge Plan Patient Name: ALEXYS MIGUEL Facility: [facility]:[place] : 1945 Planned Disposition: Home Hlth Svc w Plan Readm Anticipated Discharge Date: 01/13/19 Discharge Date: 01/13/2019 Expected LOS: 2 Initial Reviewer: [email or web address] Initial Review Date: 01/13/2019 Generated: 01/14/19 1:11 pm Comments DCP- Discharge Planning Updated by [email or web address]: Sandee Potter on 01/13/19 11:[address] Patient Name: ALEXYS MIGUEL Admission Status: ER Accout number: [id number] Admission Date: 01-11-2019 : 1945 Admission Diagnosis: Attending: ANNE-MARIE DO Current LOS: 2 Anticipated DC Date: 01-13-2019 Planned Disposition: Home Hlth Svc w Plan Readm Primary Insurance: MEDICARE A & B Discharge Planning Comments: Received discharge orders. CM met with patient, she is alone in the room. I discussed the availability of SNF, rehab, home health and DME. [facility]. I called and spoke with Bharati at [place] and clinical/order faxed. She states she has all the DME she needs. States she refused a CPM and her doctor said it was ok. States her will pick her up on discharge. States she was able to climb their stairs at home the first day she went home post op. Home today with [facility]. [address] Vendor: Sandee Potter DCPIA - Discharge Planning Initial Assessment Updated by [email or web address]: Sandee Potter on 01/13/19 12:20 pm * Is the patient Alert and Oriented? Yes * How many steps to enter\exit or inside your home? 05/30 * PCP Dr. Dietz * Pharmacy [facility] * Preadmission Environment Home with Family * ADLs Partial Dependent * Partial ADLs (Assistance needed) Ambulation * Equipment Bedside Commode Other Shower Chair Walker * Other Equipment Rollator walker * List name and contact numbers for known caregivers / representatives who currently or will assist patient after discharge: Garcia Miguel - spouse - [phone] * Verbal permission to speak to the caregivers and representatives has been obtained from the patient. Yes * Community resources currently utilized Home Health * Please name any agencies selected above. [facility] * Additional services required to return to the preadmission environment? No * Can the patient safely return to the preadmission environment? Yes * Has this patient been hospitalized within the prior 30 days at any hospital? Yes Coverage Notice Reviewer: [id number] Danielle Potter Notice Issued Date-Time: 01/13/2019 12:24 Notice Type: Patient Choice Letter Notice Delivered To: Patient Relationship to Patient: Self Demurrage Clerk Name: Delivery Method: HAND - Hand Delivered Mayte Days: Prior Verbal Notification: Recipient Understood Notice: Yes Recipient Signature: Yes Med Rec Note Co-signed by Attending: Coverage Notice Comment: GLORY for Annemarie [facility] Last DP export: 01/13/19 11:33 a Patient Name: ALEXYS MIGUEL Page [id number] at 1211 All edits/amendments must be made on the electronic document DICTATION DATE: 01/14/19 1211 AUTOMATIC PILOT MECHANIC: JOE 01/14/19 1211 RPT#: [id number] DC DATE:01/13/19 STATUS: DIS IN [facility] [address] [place] [address] END OF REPORT
== END 2019-01-13 12:33 | disposition home health service (06) | DRG 560 ==
LOC: D.ER 17:41 → D.MS 20:49
PROVIDERS: Emergency Medicine; Family Medicine; Orthopaedic Surgery; ADMIT Internal Medicine Nephrology; ATTEND Internal Medicine Nephrology
DX: T84.54XA Infection and inflammatory reaction due to internal left knee prosthesis, initial encounter (principal); I82.502 Chronic embolism and thrombosis of unspecified deep veins of left lower extremity; Z68.41 Body mass index [BMI] 40.0-44.9, adult; I10 Essential (primary) hypertension; E11.65 Type 2 diabetes mellitus with hyperglycemia; E03.9 Hypothyroidism, unspecified; D50.9 Iron deficiency anemia, unspecified; K57.90 Diverticulosis of intestine, part unspecified, without perforation or abscess without bleeding; M54.9 Dorsalgia, unspecified; M79.7 Fibromyalgia; F41.8 Other specified anxiety disorders; N95.9 Unspecified menopausal and perimenopausal disorder; E66.9 Obesity, unspecified

== ENCOUNTER 2019-02-11 14:50 | Emergency (ER) | payer MEDICARE, OTHER ==
[~2019-02-11] VITALS: Ht 157.5 cm; Wt 109.1 kg
[~2019-02-11 14:50] MED LIST changes: +CLEOCIN HCL300 MG PO; +HYDROCODON-ACE1 EAC7 PO; +XARELTO10 MG PO
[2019-02-11 15:07] VITALS: Ht 157.5 cm; Wt 109.1 kg
[2019-02-11] MEDS ORDERED: ULTRAM50 MG PO (16:18)
[2019-02-11] MEDS ORDERED: AUGMENTIN 875-11 TAB PO (16:18)
[2019-02-11 17:06] VITALS: BP 147/92
== END 2019-02-11 17:07 | disposition home or self-care (01) ==
LOC: D.ER 14:50
DX: S41.111A Laceration without foreign body of right upper arm, initial encounter (principal); W54.0XXA Bitten by dog, initial encounter

== ENCOUNTER → 2019-04-07 08:32 | Outpatient (CLI) | payer MEDICARE, OTHER ==
--- NOTE | 2018-12-21 06:40 | NUR ---
DR TORREZ NOTIFIED AND REVIEWED PT's BEHAVIOR AND ASSSESSMENT RESULTS. PT IS A LOW RISK PER DR TORREZ. DR TORREZ STATED TO GIVE RESOURCES TO PT AT TIME OF DISCHARGE. NO FURTHER ORDERS AT THIS TIME. RESOURCES REVIEWED WITH PT AND SHE VERBALIZED UNDERSTANDING.
[2019-02-11 15:07] VITALS: BMI 44.0
[~2019-04-07 08:32] MED LIST changes: +AUGMENTIN 875-11 TAB PO; +ULTRAM50 MG PO
[2019-04-07 09:50] LABS: ALBUMIN 3.6 g/dL (3.4-5.0); BILIRUBIN - DIRECT 0.07 mg/dL (0.00-0.30); BILIRUBIN - INDIRECT 0.3 mg/dL (0.00-1.00); BILIRUBIN - TOTAL 0.37 mg/dL (0.2-1.3); PROTEIN - SERUM 8.1 g/dL (6.4-8.2)
== END | disposition home or self-care (01) ==
LOC: D.US 08:30
PROVIDERS: ATTEND Internal Medicine Gastroenterology
DX: K76.0 Fatty (change of) liver, not elsewhere classified (principal); Z12.31 Encounter for screening mammogram for malignant neoplasm of breast

== ENCOUNTER → 2019-06-15 16:49 | Outpatient (CLI) | payer MEDICARE, OTHER ==
[2019-02-11 15:07] VITALS: BMI 44.0
== END | disposition home or self-care (01) ==
LOC: D.LABREF 16:49
PROVIDERS: ATTEND Orthopaedic Surgery
DX: M17.11 Unilateral primary osteoarthritis, right knee (principal)

== ENCOUNTER 2019-06-16 11:59 | Inpatient (IN) | payer MEDICARE, OTHER ==
[~2019-06-16] VITALS: Ht 157.5 cm; Wt 113.4 kg
[2019-07-07] MEDS ORDERED: FAMOTIDINE PO (10:18)
[2019-07-07 11:53] LABS: BASOPHILS 0.5 % (0-2); EOSINOPHILS 1.8 % (0-7); HEMATOCRIT 40.8 % (36.0-48.0); HEMOGLOBIN 12.3 g/dL (12-16); IMMATURE GRANULOCYTES 0.3 % (0-5); MCH 25.1 pg (26.0-34.0); MCHC 30.1 g/dL (31.0-37.0); MCV 83.3 fL (80.0-100.0); MEAN PLATELET VOLUME 11.9 fL (7.4-10.4); NEUTROPHILS 55.4 % (40-80); PLATELET COUNT 520 10x3/uL (130-400); RDW 18.5 % (11.5-14.5); WBC 11.3 10x3/uL (4.8-10.8)
[2019-07-07 11:56] LABS: ANION GAP 9.9 mmol/L (8-16); APTT 29.6 SECONDS (22.8-39.4); CALCIUM 9.3 mg/dL (8.5-10.1); CARBON DIOXIDE 33.2 mmol/L (21.0-32.0); CREATININE - SERUM 0.9 mg/dL (0.6-1.3); INR 0.99 (0.85-1.17); POTASSIUM - SERUM 4.1 mmol/L (3.5-5.1)
[2019-07-07 12:07] LABS: BILIRUBIN NEGATIVE (NEGATIVE); GLUCOSE NEGATIVE (NEGATIVE); KETONE NEGATIVE (NEGATIVE); NITRITE NEGATIVE (NEGATIVE); SPECIFIC GRAVITY 1.015 (1.005-1.020); UROBILINOGEN NORMAL (NORMAL)
[2019-07-07 12:08] LABS: BACTERIA FEW /hpf (NEGATIVE); RED CELLS - URINE 0-5 /hpf (0-5)
[2019-07-11] VITALS (9 sets, daily range): BP systolic 138–168; BP diastolic 76–97; BMI 44.2
[2019-07-11] MEDS ORDERED: GLUCOPHAGE500 MG PO (09:49)
[2019-07-11] MEDS ORDERED: AUGMENTIN 875-11 TAB PO (09:55)
--- NOTE | 2019-07-11 13:27 | NUR ---
PLASMA BLADE SET TO 6/8 GROUNDING PAD ON LEFT FLANK LOT# [id number] EXP 02/06/2021 WOUND BED PACKED WITH ANTIBIOTICS PT LEG CLEANSED WITH CHLORAPREP AND HIBICLENS FROM UPPER THIGH TO TOES CIRCUMFRIENTIALLY PRIOR TO PREPPING WITH CHLORAPREP X2. RN IN STERILE GOWN AND GLOVES TO PREP SKIN. TRAFFIC KEPT TO MINIMUM
--- NOTE | 2019-07-11 20:17 | NUR ---
PATIENT RESTING IN BED WITH EYES CLOSED AND NO S/S OF DISTRESS. PATIENT ON CPM MACHINE. BED IN LOWEST POSITION AND CALL LIGHT WITHIN REACH. WILL CONTINUE TO MONITOR.
--- NOTE | 2019-07-11 21:20 | NUR ---
TOOK PATIENT OFF CPM MACHINE
--- NOTE | 2019-07-11 22:24 | NUR ---
ADMINISTERED MEDS PER ORDERS. PATIENT HAS BLOODY DRAINAGE TO THE POSTERIOR RIGHT KNEE DRESSING. MARKED DRESSING AND WILL CONTINUE TO MONITOR FOR DRAINAGE.
--- NOTE | 2019-07-11 23:59 | NUR ---
PATIENT VOIDED 200 ML
[2019-07-12] VITALS: BP 130/76
[2019-07-12 05:00] VITALS: BP 142/73
--- NOTE | 2019-07-12 05:10 | NUR ---
PLACED PATIENT ON CPM MACHINE TO RIGHT KNEE
[2019-07-12 07:18] LABS: BASOPHILS 0.1 % (0-2); EOSINOPHILS 0.1 % (0-7); HEMATOCRIT 33.9 % (36.0-48.0); HEMOGLOBIN 10.1 g/dL (12-16); IMMATURE GRANULOCYTES 0.2 % (0-5); MCH 24.5 pg (26.0-34.0); MCHC 29.8 g/dL (31.0-37.0); MCV 82.1 fL (80.0-100.0); MONOCYTES 10.2 % (2-11); NEUTROPHILS 73.4 % (40-80); PLATELET COUNT 436 10x3/uL (130-400); RBC 4.13 10x6/uL (4.00-5.40); WBC 12.9 10x3/uL (4.8-10.8)
--- NOTE | 2019-07-12 07:30 | NUR ---
PT ASKED TO HAVE CPM REMOVED EARLY. INFORMED PT IT NEEDED TO STAY ON UNTIL 0810. SHE SAID SHE COULD NOT TOLERATE IT THAT LONG AND HAD ME REMOVE IT.
[2019-07-12 07:37] LABS: ANION GAP 10.6 mmol/L (8-16); CALCIUM 8.2 mg/dL (8.5-10.1); CARBON DIOXIDE 28.8 mmol/L (21.0-32.0); CREATININE - SERUM 0.9 mg/dL (0.6-1.3); MAGNESIUM - SERUM 1.9 mg/dL (1.8-2.4); POTASSIUM - SERUM 4.4 mmol/L (3.5-5.1)
--- NOTE | 2019-07-12 08:09 | OP ---
PATIENT NAME: ALEXYS MIGUEL MEDICAL RECORD: [id number] :47 LOCATION:D. D.1213 ADMISSION DATE:07/11/19 SURGEON: ARIK TRAORE DO DATE OF OPERATION: 07/11/2019 PROCEDURE PERFORMED: Right total knee arthroplasty. PREOPERATIVE DIAGNOSIS: Right knee osteoarthritis. POSTOPERATIVE DIAGNOSIS: Right knee osteoarthritis. INDICATIONS: Ms. Miguel is a 74-year-old female who has been dealing with right knee pain for quite some time. It is affecting her activities of daily living. She wanted something done surgically. She is aware of the risks including infection, bleeding, damage to nerves and vessels, need for further surgery, continued pain, blood clots, failure of hardware, fracture, failure of implants and even and she signed the consent. SURGEON: Arik Traore DO FRONT ATTENDANT: Jacob Martinez, certified surgical bilingual teacher assistant. He assisted with closing and holding retractors. Procedure could not have been done without him. The patient was given a block by anesthesia in preoperative area and then taken to the operative suite. DESCRIPTION OF PROCEDURE: The patient was sedated and LMA was placed. The right lower extremity was then prepped and draped in sterile fashion. Timeout was performed. Everyone was in agreeance with correct site, side, the patient, and procedure. She received 2 grams Ancef and 80 mg of gentamicin preoperatively. The timeout was then performed. I marked out the incision and then covered the knee and Ioban, then went with the 10 blade scalpel and down to the capsule. Careful dissection in the medial parapatellar approach was used to open the knee joint. Then everted the patella, removed part of the fat pad and milled down the patella after removing osteophytes. I then flexed the knee and put a drill into the canal of the knee and put the distal femur cutting guide through there and pinned it and then cut the distal femur. We then cut the proximal tibia. She had a large cyst in the posterior tibia right in the center. This was curetted out and drilled out. Once all the tibia was removed, it was brought to extension. The menisci were removed. Any bleeding was coagulated with Aquamantys. I did a medial release as she was quite tight medially. The 10 extension block fit very well and then flexed femur up. She was then measured to be 62.5 and then put the 4-in-1 cutting block on and cut into the 4-in-1 cuts through the block and then put the posterior stabilized cutting block on and the lug holes were drilled and the block was cut out for the posterior stabilized knee. The femur was then impacted on and the tibia floated in and ranged and marked the rotation and then drilled for the patella and removed the trials and sized the tibia to be 71 and 71 was used, then we used a stem on it. This was reamed and punched. The cement was mixed. I then put extra holes in the tibia and then the large void that was in the posterior tibia then put cement in the tibia in the void and on the implant, impacted in place. Excess cement was removed. We then impacted on the femur with a 10 poly in between and brought to extension and cleaned out the patella and put squeezer on that, all of the cement dried, we put in the 10% povidone iodine with 500 mL normal saline in the knee, left in for 3 minutes. Once that was done, the cement was dried. This was irrigated out with greater than a liter of normal OPERATIVE REPORT [id number] ALEXYS MIGUEL saline. We then trialed the 10, the 10 fit well and put a 10 posterior stabilized highly constrained E poly and locked it into place, then ranged the knee and it fit very well and we just had the great stability and flexion and extension, medial or lateral varus valgus. Then put Epifanio and vancomycin and tobramycin powder in the knee, closed the capsule with #2 Ethibond in aacfjv-ze-wuaom fashion, 2-0 Vicryl on the skin and ZipLine placed on the skin. A 2-0 Vicryl in inverted interrupted fashion was applied. Adaptic, 4 x 4s, ABD, Webril, Irvin wrap and CHRISTELLE hose stockings were then placed on the knee. She was awakened and taken to recovery in stable condition. ESTIMATED BLOOD LOSS: Approximately 300 mL. COMPLICATIONS: None. TRANSINT:[id number] Voice Confirmation ID: [id number] DOCUMENT ID: [id number] ARIK TRAORE DO at 0809 CC: [id number] DICTATION DATE: 07/11/19 1345 VOICE NETWORK ADMINISTRATOR: 07/11/19 4343 ADM IN [facility] [address] [place] [id number]
[2019-07-12 09:45] VITALS: BP 157/70
--- NOTE | 2019-07-12 11:49 | MORECARE ---
CASE MANAGEMENT DISCHARGE SUMMARY PATIENT: ALEXYS MIGUEL UNIT: [id number] ADM DATE: 07/11/19 AGE: 74 : 46 SEX: F ROOM/BED: D.1213 AUTHOR: MARILU CASTILLO PHYSICIAN: REFERRING PHYSICIAN: BELÉN TRAORE DO DATE OF SERVICE: 07/12/19 Discharge Plan Patient Name: ALEXYS MIGUEL Facility: [facility]:[place] : 1945 Planned Disposition: Home Anticipated Discharge Date: Discharge Date: Expected LOS: Initial Reviewer: [email or web address] Initial Review Date: 07/11/2019 Generated: 07/12/19 12:49 pm DCP- Discharge Planning Updated by [email or web address]: Rebeka Cazares on 07/12/19 10:[address] CM met with patient to discuss initial discharge planning. Patient is in agreement to proceed with the assessment. Patient reports that she lives at home independently with her spouse. Patient is alert/oriented. Stairs/steps: 3 w/rails. PCP: Dr. Dietz. Pharmacy: [facility]. Patient states she has been able to obtain all of her prescribed medications ELIGIBILITY SPECIALIST. HHS: No. DME: Walker, CPM, BSC, Polar Pack. Patient gives permission to speak with family members/care givers. Emergency contact: Garcia Miguel (spouse) [phone]. Patient is Independent with all ADL's, medication management ELIGIBILITY SPECIALIST. CM discussed the availability of HH, Rehab, DME services. Patient states she will use [facility]. Patient feels safe returning to previous environment. Patient denies being hospitalized within the past 30 days. Patient denies the use of community resources ELIGIBILITY SPECIALIST. Transportation at time of discharge: Spouse, Garcia. CM will assist with DC needs/plans PRN. Patient Name: ALEXYS MIGUEL Page [phone] at 1149 All edits/amendments must be made on the electronic document DICTATION DATE: 07/12/19 1149 BANQUET CHEF: JOE 07/12/19 1149 RPT#: [id number] DC DATE: STATUS: ADM IN [facility] [address] [place] [address] END OF REPORT
[2019-07-12 11:53] LABS: BILIRUBIN 1+ (NEGATIVE); GLUCOSE NEGATIVE (NEGATIVE); KETONE NEGATIVE (NEGATIVE); NITRITE NEGATIVE (NEGATIVE)
[2019-07-12 11:54] LABS: BACTERIA FEW /hpf (NEGATIVE); EPITHELIAL CELLS 0-5 /hpf (0-5); RED CELLS - URINE 0-5 /hpf (0-5); WHITE CELLS - URINE RARE /hpf (NEGATIVE)
--- NOTE | 2019-07-12 13:17 | MORECARE ---
CASE MANAGEMENT DISCHARGE SUMMARY PATIENT: ALEXYS MIGUEL UNIT: [id number] ADM DATE: 07/11/19 AGE: 74 : 46 SEX: F ROOM/BED: D.1213 AUTHOR: MARILU CASTILLO PHYSICIAN: REFERRING PHYSICIAN: BELÉN TRAORE DO DATE OF SERVICE: 07/12/19 Discharge Plan Patient Name: ALEXYS MIGUEL Facility: [facility]:[place] : 1945 Planned Disposition: Home Anticipated Discharge Date: Discharge Date: Expected LOS: Initial Reviewer: [email or web address] Initial Review Date: 07/11/2019 Generated: 07/12/19 2:16 pm DCP- Discharge Planning Updated by [email or web address]: Rebeka Cazares on 07/12/19 10:[address] CM met with patient to discuss initial discharge planning. Patient is in agreement to proceed with the assessment. Patient reports that she lives at home independently with her spouse. Patient is alert/oriented. Stairs/steps: 3 w/rails. PCP: Dr. Dietz. Pharmacy: [facility]. Patient states she has been able to obtain all of her prescribed medications CASING MATERIAL WEIGHER. HHS: No. DME: Walker, CPM, BSC, Polar Pack. Patient gives permission to speak with family members/care givers. Emergency contact: Garcia Miguel (spouse) [phone]. Patient is Independent with all ADL's, medication management CASING MATERIAL WEIGHER. CM discussed the availability of HH, Rehab, DME services. Patient states she will use [facility]. Patient feels safe returning to previous environment. Patient denies being hospitalized within the past 30 days. Patient denies the use of community resources CASING MATERIAL WEIGHER. Transportation at time of discharge: Spouse, Garcia. CM will assist with DC needs/plans PRN. DCPIA - Discharge Planning Initial Assessment Updated by [email or web address]: Rebeka Cazares on 07/12/19 1:14 pm * Is the patient Alert and Oriented? Yes * How many steps to enter\exit or inside your home? 3 w/rails * PCP Dr. Dietz * Pharmacy [facility] * Preadmission Environment Home with Family * ADLs Independent * Equipment Bedside Commode Rolling Walker Shower Chair * Other Equipment CPM * List name and contact numbers for known caregivers / representatives who currently or will assist patient after discharge: Garcia Miguel (spouse) [phone] * Verbal permission to speak to the caregivers and representatives has been obtained from the patient. Yes * Community resources currently utilized None * Please name any agencies selected above. Selected [facility] * Additional services required to return to the preadmission environment? Yes * Can the patient safely return to the preadmission environment? Yes * Has this patient been hospitalized within the prior 30 days at any hospital? No Last DP export: 07/12/19 10:49 a Patient Name: ALEXYS MIGUEL Page 52523 at 1317 All edits/amendments must be made on the electronic document DICTATION DATE: 07/12/19 1316 SPEECH TEACHER: JOE 07/12/19 1316 RPT#: [id number] DC DATE: STATUS: ADM IN [facility] [address] [place] [address] END OF REPORT
--- NOTE | 2019-07-12 14:03 | MORECARE ---
CASE MANAGEMENT DISCHARGE SUMMARY PATIENT: ALEXYS MIGUEL UNIT: [id number] ADM DATE: 07/11/19 AGE: 74 : 46 SEX: F ROOM/BED: D.1213 AUTHOR: MARILU CASTILLO PHYSICIAN: REFERRING PHYSICIAN: BELÉN TRAORE DO DATE OF SERVICE: 07/12/19 Discharge Plan Patient Name: ALEXYS MIGUEL Facility: [facility]:[place] : 1945 Planned Disposition: Home Anticipated Discharge Date: 07/13/19 Discharge Date: Expected LOS: 2 Initial Reviewer: [email or web address] Initial Review Date: 07/11/2019 Generated: 07/12/19 3:03 pm Comments DCP- Discharge Planning Updated by [email or web address]: Rebeka Cazares on 07/12/19 12:[address] CM contacted Ruba, with [facility], scheduled appointment for 07/14/19 @1:30 pm with Ed. [facility] will call patient on the of her DC to confirm time of appointment. Faxed Knee x-ray and Surgery Post Op Report as requested. Copy of the appointment given to the patient. DCP- Discharge Planning Updated by [email or web address]: Rebeka Cazares on 07/12/19 10:[address] CM met with patient to discuss initial discharge planning. Patient is in agreement to proceed with the assessment. Patient reports that she lives at home independently with her spouse. Patient is alert/oriented. Stairs/steps: 3 w/rails. PCP: Dr. Dietz. Pharmacy: [facility]. Patient states she has been able to obtain all of her prescribed medications MOLD DRESSER. HHS: No. DME: Walker, CPM, BSC, Polar Pack. Patient gives permission to speak with family members/care givers. Emergency contact: Garcia Miguel (spouse) [phone]. Patient is Independent with all ADL's, medication management MOLD DRESSER. CM discussed the availability of HH, Rehab, DME services. Patient states she will use [facility]. Patient feels safe returning to previous environment. Patient denies being hospitalized within the past 30 days. Patient denies the use of community resources MOLD DRESSER. Transportation at time of discharge: Spouse, Garcia. CM will assist with DC needs/plans PRN. DCPIA - Discharge Planning Initial Assessment Updated by [email or web address]: Rebeka Cazares on 07/12/19 1:14 pm * Is the patient Alert and Oriented? Yes * How many steps to enter\exit or inside your home? 3 w/rails * PCP Dr. Dietz * Pharmacy [facility] * Preadmission Environment Home with Family * ADLs Independent * Equipment Bedside Commode Rolling Walker Shower Chair * Other Equipment CPM * List name and contact numbers for known caregivers / representatives who currently or will assist patient after discharge: Garcia Miguel (spouse) [phone] * Verbal permission to speak to the caregivers and representatives has been obtained from the patient. Yes * Community resources currently utilized None * Please name any agencies selected above. Selected [facility] * Additional services required to return to the preadmission environment? Yes * Can the patient safely return to the preadmission environment? Yes * Has this patient been hospitalized within the prior 30 days at any hospital? No Coverage Notice Reviewer: [id number] - Rebeka Cazares Notice Issued Date-Time: 07/12/2019 13:58 Notice Type: Patient Choice Letter Notice Delivered To: Patient Relationship to Patient: Self Primary Clinician Name: Alexys Miguel Delivery Method: HAND - Hand Delivered Mayte Days: Prior Verbal Notification: Recipient Understood Notice: Yes Recipient Signature: Yes Med Rec Note Co-signed by Attending: Coverage Notice Comment: Patient Choice for [facility] signed by patient. Original placed on the chart, copy given to the patient. Last DP export: 07/12/19 12:17 p Patient Name: ALEXYS MIGUEL Page 63112 at 1403 All edits/amendments must be made on the electronic document DICTATION DATE: 07/12/19 1403 GAS MAKER HELPER: JOE 07/12/19 1403 RPT#: [id number] DC DATE: STATUS: ADM IN [facility] [address] [place] [address] END OF REPORT
--- NOTE | 2019-07-12 14:38 | MORECARE ---
CASE MANAGEMENT DISCHARGE SUMMARY PATIENT: ALEXYS MIGUEL UNIT: [id number] ADM DATE: 07/11/19 AGE: 74 : 46 SEX: F ROOM/BED: D.1213 AUTHOR: MARILU CASTILLO PHYSICIAN: REFERRING PHYSICIAN: BELÉN TRAORE DO DATE OF SERVICE: 07/12/19 Discharge Plan Patient Name: ALEXYS MIGUEL Facility: [facility]:[place] : 1945 Planned Disposition: Home Anticipated Discharge Date: 07/13/19 Discharge Date: Expected LOS: 2 Initial Reviewer: [email or web address] Initial Review Date: 07/11/2019 Generated: 07/12/19 3:38 pm Comments DCP- Discharge Planning Updated by [email or web address]: Rebeka Cazares on 07/12/19 1:[address] CM contacted Ruba, with [facility], scheduled appointment for Wednesday07/17/19 @1:30 pm with Ed. [facility] will call patient on the of her DC to confirm time of appointment. Faxed Knee x-ray and Surgery Post Op Report as requested. Copy of the appointment given to the patient. DCP- Discharge Planning Updated by [email or web address]: Rebeka Cazares on 07/12/19 10:[address] CM met with patient to discuss initial discharge planning. Patient is in agreement to proceed with the assessment. Patient reports that she lives at home independently with her spouse. Patient is alert/oriented. Stairs/steps: 3 w/rails. PCP: Dr. Dietz. Pharmacy: [facility]. Patient states she has been able to obtain all of her prescribed medications MEDICAL RECORDS FIELD TECHNICIAN. HHS: No. DME: Walker, CPM, BSC, Polar Pack. Patient gives permission to speak with family members/care givers. Emergency contact: Garcia Miguel (spouse) [phone]. Patient is Independent with all ADL's, medication management MEDICAL RECORDS FIELD TECHNICIAN. CM discussed the availability of HH, Rehab, DME services. Patient states she will use [facility]. Patient feels safe returning to previous environment. Patient denies being hospitalized within the past 30 days. Patient denies the use of community resources MEDICAL RECORDS FIELD TECHNICIAN. Transportation at time of discharge: Spouse, Garcia. CM will assist with DC needs/plans PRN. DCPIA - Discharge Planning Initial Assessment Updated by [id number]: Rebeka Cazares on 07/12/19 1:14 pm * Is the patient Alert and Oriented? Yes * How many steps to enter\exit or inside your home? 3 w/rails * PCP Dr. Dietz * Pharmacy [facility] * Preadmission Environment Home with Family * ADLs Independent * Equipment Bedside Commode Rolling Walker Shower Chair * Other Equipment CPM * List name and contact numbers for known caregivers / representatives who currently or will assist patient after discharge: Garcia Miguel (spouse) [phone] * Verbal permission to speak to the caregivers and representatives has been obtained from the patient. Yes * Community resources currently utilized None * Please name any agencies selected above. Selected [facility] * Additional services required to return to the preadmission environment? Yes * Can the patient safely return to the preadmission environment? Yes * Has this patient been hospitalized within the prior 30 days at any hospital? No Coverage Notice Reviewer: [id number] - Rebeka Cazares Notice Issued Date-Time: 07/12/2019 13:58 Notice Type: Patient Choice Letter Notice Delivered To: Patient Relationship to Patient: Self Visitor Services Specialist Name: Alexys Miguel Delivery Method: HAND - Hand Delivered Mayte Days: Prior Verbal Notification: Recipient Understood Notice: Yes Recipient Signature: Yes Med Rec Note Co-signed by Attending: Coverage Notice Comment: Patient Choice for [facility] signed by patient. Original placed on the chart, copy given to the patient. Last DP export: 07/12/19 1:03 p Patient Name: ALEXYS MIGUEL Page [phone] at 1438 All edits/amendments must be made on the electronic document DICTATION DATE: 07/12/191437 SAWMILL PRODUCTION WORKER: JOE 07/12/19 143 RPT#: [id number] DC DATE: STATUS: ADM IN [facility] [address] [place] [address] END OF REPORT
--- NOTE | 2019-07-12 16:21 | NUR ---
PT WANTING TO SIT ON THE SIDE OF THE BED. ATTEMPTED TO REACH PHYSICAL THERAPY, THEY ARE GONE FOR THE EVENING. PT WAS NOT ABLE TO TOLERATE SITTING ON THE SIDE OF THE BED THIS MORNING WHEN PHYSICAL THERAPY TRIED TO WORK WITH HER. WHEN I NOTIFIED THE PT THAT PHYSICAL THERAPY WOULD BE BACK TO ASSIST HER TO SIT ON THE SIDE OF THE BED EARLY TOMORROW MORNING, SHE WAS VERY UNHAPPY AND BECAME ARGUMENTATIVE. I TRIED TO CALM AND REASSURE PT BUT SHE CONTINUED TO ARGUE. AT THIS TIME I LEFT THE ROOM TO ALLOW HER TIME TO CALM DOWN. WILL CONTINUE TO MONITOR.
--- NOTE | 2019-07-12 19:00 | NUR ---
ASSISTED PATIENT ON AND OFF BEDPAN. PATIENT VOIDED. PATIENT DENIES OTHER NEEDS AT THIS TIME. PATIENT ON CPM MACHINE. BED IN LOWEST POSITION AND CALL LIGHT WITHIN REACH. WILL CONTINUE TO MONITOR.
[2019-07-12 19:48] VITALS: BP 165/75
--- NOTE | 2019-07-12 20:20 | NUR ---
ASSISTED PATIENT ON AND OFF BEDPAN. PLACED PATIENT BACK ON CPM. PATIENT C/O CPM CAUSING PAIN. PATIENT STATED IT IS ON WRONG. I CHECKED CPM AND EXPLAINED TO THE PATIENT THAT SHE IS ON THE MACHINE CORRECTLY. I ALSO EXPLAINED TO THE PATIENT THAT I JUST GAVE HER PAIN MEDICATION AND THAT IT WOULD MAKE THE PAIN MORE TOLERABLE. PATIENT DENIES OTHER NEEDS AT THIS TIME. BED IN LOWEST POSITION, CALL LIGHT WITHIN REACH, AND BED ALARM ON. ENCOURAGED THE PATIENT TO CALL IF SHE HAS NEEDS. WILL CONTINUE TO MONITOR.
--- NOTE | 2019-07-12 21:17 | NUR ---
ASSISTED PATIENT ON AND OFF BEDPAN. PATIENT VOIDED. PATIENT ASKED HOW LONG SHE HAD LEFT ON THE CPM MACHINE. I EXPLAINED TO THE PATIENT THAT SHE HAD APROX 30 MINS REMAINING. SHE REQUESTED NOT TO BE PLACED BACK ON THE CPM MACHINE.
--- NOTE | 2019-07-12 23:46 | NUR ---
PATIENT RESTING IN BED WITH EYES CLOSED AND NO S/S OF DISTRESS. BED IN LOWEST POSITION, CALL LIGHT WITHIN REACH, AND BED ALARM ON. WILL CONTINUE TO MONITOR.
[2019-07-13 00:23] VITALS: BP 141/80
--- NOTE | 2019-07-13 02:08 | NUR ---
PATIENT RESTING IN BED WITH EYES CLOSED AND NO S/S OF DISTRESS. BED IN LOWEST POSITION AND CALL LIGHT WITHIN REACH. WILL CONTINUE TO MONITOR.
[2019-07-13 03:14] VITALS: BP 154/66
--- NOTE | 2019-07-13 05:15 | NUR ---
PATIENT PLACED ON CPM MACHINE TO HER RIGHT KNEE
[2019-07-13 06:03] LABS: BASOPHILS 0.1 % (0-2); EOSINOPHILS 0.1 % (0-7); HEMATOCRIT 31.8 % (36.0-48.0); HEMOGLOBIN 9.7 g/dL (12-16); IMMATURE GRANULOCYTES 0.5 % (0-5); LYMPHOCYTES 21.8 % (15-50); MCH 24.7 pg (26.0-34.0); MCHC 30.5 g/dL (31.0-37.0); MCV 80.9 fL (80.0-100.0); MEAN PLATELET VOLUME 11.4 fL (7.4-10.4); MONOCYTES 11.6 % (2-11); NEUTROPHILS 65.9 % (40-80); PLATELET COUNT 397 10x3/uL (130-400); RBC 3.93 10x6/uL (4.00-5.40); RDW 18.5 % (11.5-14.5)
[2019-07-13 06:10] LABS: WBC 17.6 10x3/uL (4.8-10.8)
[2019-07-13 06:19] LABS: ANION GAP 11.1 mmol/L (8-16); CALCIUM 8.2 mg/dL (8.5-10.1); CARBON DIOXIDE 27.7 mmol/L (21.0-32.0); CREATININE - SERUM 0.8 mg/dL (0.6-1.3); MAGNESIUM - SERUM 1.6 mg/dL (1.8-2.4); POTASSIUM - SERUM 3.8 mmol/L (3.5-5.1)
[2019-07-13 07:16] VITALS: BP 156/69
--- NOTE | 2019-07-13 08:32 | NUR ---
AWAKE AND ALERT. ORIENTED X3. FAMILY AT BEDSIDE. LUNGS ARE CLEAR BILATERALLY, NO COUGH NOTED. SKIN IS INTACT WITHOUT REDNESS EXCEPT INCISION TO RIGHT KNEE WHICH HAS A DRY INTACT DRESSING IN PLACE. IV TO LEFT HAND IS PATENT WITHOUT REDNESS AT INSERTION SITE. REPORTS VERY SCANT RELIEF WITH USE OF OXY BUT REPORTS CHRONIC BACK ISSUES CREATING THE PAIN. WILL MONITOR.
--- NOTE | 2019-07-13 09:00 | NUR ---
REFUSED TO EAT ANY BREAKFAST. TOOK AM MEDS WITHOUT DIFFICULTY. DENIES NEEDS.
--- NOTE | 2019-07-13 10:59 | NUR ---
UP TO CHIAR AT BEDSIDE, MAX ASSIST OF 2. POSITIONED IN CHAIR FOR COMFORT. GIVEN 10MG OXY PO FOR C/O RIGHT KNEE PAIN LEVEL 10. ALSO C/O NAUSEA WITH ACTIVITY.GIVEN 4MG ZOFRAN SLOW IVP FOR SAME. WILL MONITOR.
[2019-07-13 11:34] VITALS: BP 145/69
--- NOTE | 2019-07-13 12:30 | NUR ---
LUNCH SERVED IN ROOM. ATE ONLY ABOUT 20% OF MEAL. WAS UP TO CHAIR PER PT AND THEN TO BSC. VOIDED WITHOUT DIFFICULTY, BATH GIVEN WHILE UP PER STAFF. LINENS CHANGED.
--- NOTE | 2019-07-13 13:30 | NUR ---
BACK TO BED WITH MOD ASSIST X2. POSITIONED IN BED FOR COMFORT.
[2019-07-13 13:33] VITALS: Ht 157.5 cm; Wt 113.4 kg
--- NOTE | 2019-07-13 15:03 | MORECARE ---
CASE MANAGEMENT DISCHARGE SUMMARY PATIENT: ALEXYS MIGUEL UNIT: [id number] ADM DATE: 07/11/19 AGE: 74 : 46 SEX: F ROOM/BED: D.1213 AUTHOR: MARILU CASTILLO PHYSICIAN: REFERRING PHYSICIAN: BELÉN TRAORE DO DATE OF SERVICE: 07/13/19 Discharge Plan Patient Name: ALEXYS MIGUEL Facility: [facility]:[place] : 1945 Planned Disposition: Home Anticipated Discharge Date: 07/13/19 Discharge Date: Expected LOS: 2 Initial Reviewer: [email or web address] Initial Review Date: 07/11/2019 Generated: 07/13/19 4:02 pm Comments DCP- Discharge Planning Updated by [email or web address]: Rebeka Cazares on 07/13/19 2:[address] Patient has informed CM that she would like to go into [facility]. Patient Choice signed. Contacted Lula with rehab and made her aware of Rehab consult. DCP- Discharge Planning Updated by [email or web address]: Rebeka Cazares on 07/12/19 1:[address] CM contacted Ruba, with [facility], scheduled appointment for Wednesday07/17/19 @1:30 pm with Ed. [facility] will call patient on the of her DC to confirm time of appointment. Faxed Knee x-ray and Surgery Post Op Report as requested. Copy of the appointment given to the patient. DCP- Discharge Planning Updated by [email or web address]: Rebeka Cazares on 07/12/19 10:[address] CM met with patient to discuss initial discharge planning. Patient is in agreement to proceed with the assessment. Patient reports that she lives at home independently with her spouse. Patient is alert/oriented. Stairs/steps: 3 w/rails. PCP: Dr. Dietz. Pharmacy: [facility]. 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 HHS: No. DME: Walker, CPM, BSC, Polar Pack. Patient gives permission to speak with family members/care givers. Emergency contact: Garcia Miguel (spouse) [phone]. Patient is Independent with all ADL's, medication management DETAIL TECHNICIAN. CM discussed the availability of HH, Rehab, DME services. Patient states she will use [facility]. Patient feels safe returning to previous environment. Patient denies being hospitalized within the past 30 days. Patient denies the use of community resources DETAIL TECHNICIAN. Transportation at time of discharge: Spouse, Garcia. CM will assist with DC needs/plans PRN. DCPIA - Discharge Planning Initial Assessment Updated by [email or web address]: Rebeka Cazares on 07/12/19 1:14 pm * Is the patient Alert and Oriented? Yes * How many steps to enter\exit or inside your home? 3 w/rails * PCP Dr. Dietz * Pharmacy [facility] * Preadmission Environment Home with Family * ADLs Independent * Equipment Bedside Commode Rolling Walker Shower Chair * Other Equipment CPM * List name and contact numbers for known caregivers / representatives who currently or will assist patient after discharge: Garcia Miguel (spouse) [phone] * Verbal permission to speak to the caregivers and representatives has been obtained from the patient. Yes * Community resources currently utilized None * Please name any agencies selected above. Selected [facility] * Additional services required to return to the preadmission environment? Yes * Can the patient safely return to the preadmission environment? Yes * Has this patient been hospitalized within the prior 30 days at any hospital? No Coverage Notice Reviewer: [id number] Danielle Cazares Notice Issued Date-Time: 07/12/2019 13:58 Notice Type: Patient Choice Letter Notice Delivered To: Patient Relationship to Patient: Self Roller Checker Name: Alexys Miguel Delivery Method: HAND - Hand Delivered Mayte Days: Prior Verbal Notification: Recipient Understood Notice: Yes Recipient Signature: Yes Med Rec Note Co-signed by Attending: Coverage Notice Comment: Patient Choice for [facility] signed by patient. Original placed on the chart, copy given to the patient. Reviewer: [id number] Danielle Cazares Notice Issued Date-Time: 07/13/2019 12:08 Notice Type: IM Discharge Notice Notice Delivered To: Patient Relationship to Patient: Self Roller Checker Name: Alexys Miguel Delivery Method: HAND - Hand Delivered Mayte Days: Prior Verbal Notification: Recipient Understood Notice: Recipient Signature: Yes Med Rec Note Co-signed by Attending: Coverage Notice Comment: DC IMM signed by patient, original given to patient. Original to chart. Last DP export: 07/12/19 1:38 p Patient Name: ALEXYS MIGUEL Page 66821 at 1503 All edits/amendments must be made on the electronic document DICTATION DATE: 07/13/19 1503 ELECTRICAL MAINTENANCE SUPERVISOR: JOE 07/13/19 1503 RPT#: [id number] DC DATE: STATUS: ADM IN [facility] [address] [place] [address] END OF REPORT
--- NOTE | 2019-07-13 15:12 | MORECARE ---
CASE MANAGEMENT DISCHARGE SUMMARY PATIENT: ALEXYS MIGUEL UNIT: [id number] ADM DATE: 07/11/19 AGE: 74 : 46 SEX: F ROOM/BED: D.1213 AUTHOR: JONATHAN,MARILU PHYSICIAN: REFERRING PHYSICIAN: BELÉN TRAORE DO DATE OF SERVICE: 07/13/19 Discharge Plan Patient Name: ALEXYS MIGUEL Facility: [facility]:[place] : 1945 Planned Disposition: Home Anticipated Discharge Date: 07/13/19 Discharge Date: Expected LOS: 2 Initial Reviewer: [email or web address] Initial Review Date: 07/11/2019 Generated: 07/13/19 4:12 pm Comments DCP- Discharge Planning Updated by [email or web address]: Rebeka Cazares on 07/13/19 2:[address] Patient has informed CM that she would like to go into [facility]. Patient Choice signed. Contacted Lula with rehab and made her aware of Rehab consult. Contacted Ruba with [facility] to cancel the appointment for Wednesday. DCP- Discharge Planning Updated by [email or web address]: Rebeka Cazares on 07/12/19 1:[address] CM contacted Ruba, with [facility], scheduled appointment for Wednesday07/17/19 @1:30 pm with Ed. [facility] will call patient on the of her DC to confirm time of appointment. Faxed Knee x-ray and Surgery Post Op Report as requested. Copy of the appointment given to the patient. DCP- Discharge Planning Updated by [email or web address]: Rebeka Cazares on 07/12/19 10:[address] CM met with patient to discuss initial discharge planning. Patient is in agreement to proceed with the assessment. Patient reports that she lives at home independently with her spouse. Patient is alert/oriented. Stairs/steps: 3 w/rails. PCP: Dr. Dietz. Pharmacy: [facility]. 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 HHS: No. DME: Walker, CPM, BSC, Polar [employer]. Patient gives permission to speak with family members/care givers. Emergency contact: Garcia Miguel (spouse) [phone]. Patient is Independent with all ADL's, medication management COAL YARD SUPERVISOR. CM discussed the availability of HH, Rehab, DME services. Patient states she will use [facility]. Patient feels safe returning to previous environment. Patient denies being hospitalized within the past 30 days. Patient denies the use of community resources COAL YARD SUPERVISOR. Transportation at time of discharge: Spouse, Garcia. CM will assist with DC needs/plans PRN. DCPIA - Discharge Planning Initial Assessment Updated by [email or web address]: Rebeka Cazares on 07/12/19 1:14 pm * Is the patient Alert and Oriented? Yes * How many steps to enter\exit or inside your home? 3 w/rails * PCP Dr. Dietz * Pharmacy [facility] * Preadmission Environment Home with Family * ADLs Independent * Equipment Bedside Commode Rolling Walker Shower Chair * Other Equipment CPM * List name and contact numbers for known caregivers / representatives who currently or will assist patient after discharge: Garcia Miguel (spouse) [phone] * Verbal permission to speak to the caregivers and representatives has been obtained from the patient. Yes * Community resources currently utilized None * Please name any agencies selected above. Selected [facility] * Additional services required to return to the preadmission environment? Yes * Can the patient safely return to the preadmission environment? Yes * Has this patient been hospitalized within the prior 30 days at any hospital? No Coverage Notice Reviewer: [id number] Danielle Cazares Notice Issued Date-Time: 07/12/2019 13:58 Notice Type: Patient Choice Letter Notice Delivered To: Patient Relationship to Patient: Self Carpet Tile Layer Name: Alexys Miguel Delivery Method: HAND - Hand Delivered Mayte Days: Prior Verbal Notification: Recipient Understood Notice: Yes Recipient Signature: Yes Med Rec Note Co-signed by Attending: Coverage Notice Comment: Patient Choice for [facility] signed by patient. Original placed on the chart, copy given to the patient. Reviewer: [email or web address] Danielle Cazares Notice Issued Date-Time: 07/13/2019 12:08 Notice Type: IM Discharge Notice Notice Delivered To: Patient Relationship to Patient: Self Carpet Tile Layer Name: Alexys Miguel Delivery Method: HAND - Hand Delivered Mayte Days: Prior Verbal Notification: Recipient Understood Notice: Recipient Signature: Yes Med Rec Note Co-signed by Attending: Coverage Notice Comment: DC IMM signed by patient, original given to patient. Original to chart. Reviewer: [id number] - Rebeka Cazares Notice Issued Date-Time: 07/13/2019 15:03 Notice Type: Patient Choice Letter Notice Delivered To: Patient Relationship to Patient: Self Carpet Tile Layer Name: Alexys Miguel Delivery Method: HAND - Hand Delivered Mayte Days: Prior Verbal Notification: Recipient Understood Notice: Yes Recipient Signature: Yes Med Rec Note Co-signed by Attending: Coverage Notice Comment: Patient Choice signed by patient. Last DP export: 07/13/19 2:03 p Patient Name: ALEXYS MIGUEL Page 65040 at 1512 All edits/amendments must be made on the electronic document DICTATION DATE: 07/13/191511 MACHINERY MECHANIC: JOE 07/13/191511 RPT#: [id number] DC DATE: STATUS: ADM IN [facility] [address] [place] [address] END OF REPORT
--- NOTE | 2019-07-13 15:45 | NUR ---
REQUESTED AND GIVEN 10MG OXY PO FOR C/O RIGHT KNEE PAIN LEVEL 8. WILL MONITOR. FAMILY AT BEDSIDE.
[2019-07-13 16:08] VITALS: BP 116/68
--- NOTE | 2019-07-13 16:59 | NUR ---
Rehab Note- Acute Inpatient Rehab prescreen order received. The patient is POD #2 of Right TKA. Will need to cooperate/participate with required therapy. Will follow at this time as she would have to be willing to participate in the required 3hrs/day of therapy in acute inpatient rehab. Thank you for this referral! Chandler Desouza RN Clinical Liaison, [facility] Re[facility]
--- NOTE | 2019-07-13 17:03 | MORECARE ---
CASE MANAGEMENT DISCHARGE SUMMARY PATIENT: ALEXYS MIGUEL UNIT: [id number] ADM DATE: 07/11/19 AGE: 74 : 46 SEX: F ROOM/BED: D.1213 AUTHOR: JONATHAN,MARILU PHYSICIAN: REFERRING PHYSICIAN: BELÉN TRAORE DO DATE OF SERVICE: 07/13/19 Discharge Plan Patient Name: ALEXYS MIGUEL Facility: [facility]:[place] : 1945 Planned Disposition: Home Anticipated Discharge Date: 07/14/19 Discharge Date: Expected LOS: 3 Initial Reviewer: [email or web address] Initial Review Date: 07/11/2019 Generated: 07/13/19 6:02 pm Comments DCP- Discharge Planning Updated by [email or web address]: Rebeka Cazares on 07/13/19 2:[address] Patient has informed CM that she would like to go into [facility]. Patient Choice signed. Contacted Lula with rehab and made her aware of Rehab consult. Contacted Ruba with [facility] to cancel the appointment for Wednesday. DCP- Discharge Planning Updated by [email or web address]: Rebeka Cazares on 07/12/19 1:[address] CM contacted Ruba, with [facility], scheduled appointment for Wednesday07/17/19 @1:30 pm with Ed. [facility] will call patient on the of her DC to confirm time of appointment. Faxed Knee x-ray and Surgery Post Op Report as requested. Copy of the appointment given to the patient. DCP- Discharge Planning Updated by [id number]: Rebeka Cazares on 07/12/19 10:[address] CM met with patient to discuss initial discharge planning. Patient is in agreement to proceed with the assessment. Patient reports that she lives at home independently with her spouse. Patient is alert/oriented. Stairs/steps: 3 w/rails. PCP: Dr. Dietz. Pharmacy: [facility]. 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 HHS: No. DME: Walker, CPM, BSC, Polar [employer]. Patient gives permission to speak with family members/care givers. Emergency contact: Garcia Miguel (spouse) [phone]. Patient is Independent with all ADL's, medication management BINDERY TECHNICIAN. CM discussed the availability of HH, Rehab, DME services. Patient states she will use [facility]. Patient feels safe returning to previous environment. Patient denies being hospitalized within the past 30 days. Patient denies the use of community resources BINDERY TECHNICIAN. Transportation at time of discharge: Spouse, Garcia. CM will assist with DC needs/plans PRN. DCPIA - Discharge Planning Initial Assessment Updated by [email or web address]: Rebeka Cazares on 07/12/19 1:14 pm * Is the patient Alert and Oriented? Yes * How many steps to enter\exit or inside your home? 3 w/rails * PCP Dr. Dietz * Pharmacy [facility] * Preadmission Environment Home with Family * ADLs Independent * Equipment Bedside Commode Rolling Walker Shower Chair * Other Equipment CPM * List name and contact numbers for known caregivers / representatives who currently or will assist patient after discharge: Garcia Miguel (spouse) [phone] * Verbal permission to speak to the caregivers and representatives has been obtained from the patient. Yes * Community resources currently utilized None * Please name any agencies selected above. Selected [facility] * Additional services required to return to the preadmission environment? Yes * Can the patient safely return to the preadmission environment? Yes * Has this patient been hospitalized within the prior 30 days at any hospital? No Coverage Notice Reviewer: [id number] Danielle Cazares Notice Issued Date-Time: 07/12/2019 13:58 Notice Type: Patient Choice Letter Notice Delivered To: Patient Relationship to Patient: Self Pathologist Name: Alexys Miguel Delivery Method: HAND - Hand Delivered Mayte Days: Prior Verbal Notification: Recipient Understood Notice: Yes Recipient Signature: Yes Med Rec Note Co-signed by Attending: Coverage Notice Comment: Patient Choice for [facility] signed by patient. Original placed on the chart, copy given to the patient. Reviewer: [id number] Danielle Cazares Notice Issued Date-Time: 07/13/2019 12:08 Notice Type: IM Discharge Notice Notice Delivered To: Patient Relationship to Patient: Self Pathologist Name: Alexys Miguel Delivery Method: HAND - Hand Delivered Mayte Days: Prior Verbal Notification: Recipient Understood Notice: Recipient Signature: Yes Med Rec Note Co-signed by Attending: Coverage Notice Comment: DC IMM signed by patient, original given to patient. Original to chart. Reviewer: [id number] - Rebeka Cazares Notice Issued Date-Time: 07/13/2019 15:03 Notice Type: Patient Choice Letter Notice Delivered To: Patient Relationship to Patient: Self Pathologist Name: Alexys Miguel Delivery Method: HAND - Hand Delivered Mayte Days: Prior Verbal Notification: Recipient Understood Notice: Yes Recipient Signature: Yes Med Rec Note Co-signed by Attending: Coverage Notice Comment: Patient Choice signed by patient. Last DP export: 07/13/19 2:12 p Patient Name: ALEXYS MIGUEL Page 33555 at 1703 All edits/amendments must be made on the electronic document DICTATION DATE: 07/13/191701 CONCRETE SWIMMING POOL INSTALLER: JOE 07/13/191701 RPT#: [id number] DC DATE: STATUS: ADM IN [facility] [address] [place] [address] END OF REPORT
--- NOTE | 2019-07-13 17:15 | NUR ---
CPM PLACED TO RIGHT KNEE. ATE ONLY A FEW BITES OF SUPPER. REFUSED OFFER OF ALTERNATIVE FOOD. NO CHANGES NOTED. DENIES NEEDS.
--- NOTE | 2019-07-13 19:15 | NUR ---
PT SITTING UP IN BED WITHOUT DISTRESS, AOX4. AT BEDSIDE. CPM ON TO RIGHT LEG. DRESSING TO RIGHT KNEE CDI. SCD ON TO LEFT LEG. IV LEFT HAND INFUSING 1/2NS @ 50. ASSISTED PT ON AND OFF BEDPAN TO VOID. ENCOURAGED PT TO USE INCENTIVE SPIROMETER. DENIES OTHER NEEDS AT THIS TIME. CL IN REACH, WILL CTM
--- NOTE | 2019-07-13 20:15 | NUR ---
CPM REMOVED. GAVE PT OXY ORDERED FOR PAIN
[2019-07-13 20:31] VITALS: BP 156/68
--- NOTE | 2019-07-13 21:05 | NUR ---
ASSESSED PATIENT FSBS. ADMINISTERED HUMALOG PER ORDER. PATIENT DENIES NEEDS AT THIS TIME. STATES PAIN IS 7/10 AFTER OXYCODONE ADMINISTRATION. SCD ON TO THE LEFT LEG, PLEXI PULSE TO THE RIGHT FOOT. CALL LIGHT IN REACH. CPOC.
[2019-07-14] VITALS: BP 151/75
--- NOTE | 2019-07-14 00:17 | NUR ---
HAD PATIENT USE INCENTIVE SPIROMETER X 10 AND HAD PATIENT COUGH X 3. EDUCATED PATIENT ON IMPORTANCE OF INCENTIVE SPIROMETER USE AND WANTING TO AVOID ANY RISK OF INFECTION. PATIENT VERBALIZES UNDERSTANDING.
--- NOTE | 2019-07-14 00:40 | NUR ---
PT YELLING OUT FOR NURSE. UPON ENTERING PT ROOM SHE HAD DROPPED CALL LIGHT ON FLOOR. STATED SHE NEEDED TO VOID. PLACED PT ON AND OFF BEDPAN. JOSH CARE PROVIDED. DENIES OTHER NEEDS. WILL CTM
[2019-07-14 04:00] VITALS: BP 130/70
--- NOTE | 2019-07-14 05:40 | NUR ---
PT PLACED ON AND OFF BEDPAN TO VOID. PT STATES SHE IS HAVING PAIN 10/10, MORE SO IN HER LEFT LEG. OXY GIVEN ORDERED. PT HAVING AUDIBLE EXP WHEEZING, O2 85% ON ROOM AIR. PLACED ON 1.5L/NC. FSBS 109, NO COVERAGE PER SS. ENCOURAGED PT TO USE INCENTIVE SPIROMETER. PT TEARFUL, WANTING TO KNOW WHY SHE FEELS SO BAD. STATES SHE WANTS TO GET OUT OF BED AND ASKED HOW TO LET DOWN THE SIDE RAIL. EXPLAINED TO PT SHE COULD NOT GET UP WITHOUT ASSIST SO WE WOULD PUT IT DOWN WHEN NEEDED. PT STATES "YOU THINK IM GOING TO FALL" THIS NURSE EXPLAINED TO PT THAT SHE HAS NOT BEEN UP ALL NIGHT AND SHE MIGHT BE A LITTLE WEAK AND THAT SHE NEEDED SOMEONE TO ASSIST IF GOING TO GET UP. OFFERED TO AMBULATE PT TO SIDE OF BED OR CHAIR BUT PT REFUSED STATING SHE HURT TOO BAD AT THE MOMENT. DEB CHRIS AT BEDSIDE AT THIS TIME. PT PLACED ON CPM. PT REFUSES SCD TO LEFT LEG STATING IT HURTS TOO BAD
--- NOTE | 2019-07-14 06:05 | NUR ---
PATIENT COMPLAINING OF LEFT LEG PAIN, 4 INCHES ABOVE BACK OF KNEE. NO REDNESS, SWELLING, OR ABNORMAL WARMTH TO AREA. STACIA WILSON ADMINISTERED OXY 5 SHORTLY BEFORE PATIENT COMPLAINTS. CALLED DR. TRAORE ON CELL PHONE TO LET HIM KNOW OF PATIENT COMPLAINTS.
[2019-07-14 06:38] LABS: HEMATOCRIT 29.3 % (36.0-48.0); MCH 24.9 pg (26.0-34.0); MCHC 30.7 g/dL (31.0-37.0); MCV 81.2 fL (80.0-100.0); MEAN PLATELET VOLUME 11.9 fL (7.4-10.4); PLATELET COUNT 389 10x3/uL (130-400); RBC 3.61 10x6/uL (4.00-5.40); RDW 18.4 % (11.5-14.5); WBC 17.2 10x3/uL (4.8-10.8)
[2019-07-14 07:02] LABS: LYMPHOCYTES 19 % (15-50); MONOCYTES 3 % (2-11); NEUTROPHILS 78 % (40-80); PLATELET ESTIMATE NORMAL
[2019-07-14 07:03] LABS: ELLIPTOCYTES 1+; SCHISTOCYTES OCC
[2019-07-14 07:20] LABS: ANION GAP 12.5 mmol/L (8-16); CALCIUM 8.3 mg/dL (8.5-10.1); CARBON DIOXIDE 26.2 mmol/L (21.0-32.0); MAGNESIUM - SERUM 1.8 mg/dL (1.8-2.4); POTASSIUM - SERUM 3.7 mmol/L (3.5-5.1)
--- NOTE | 2019-07-14 07:44 | NUR ---
AWAKE AND ALERT. ORIENTED X3. NO C/O AT THIS TIME. ASSISTED WITH BED [place]. VOIDED 250CC CLEAR YELLOW URINE. SKIN CARE PER STAFF. LUNGS ARE CLEAR BILATERALLY, NO COUGH NOTED. INSTRUCTED AGAIN IN USE OF IS WA WITH RETURN DEMONSTRATION. SKIN IS INTACT WITHOUT REDNESS EXCEPT INCISION TO RIGHT KNEE WHICH HAS A DRY INTACT DRESSING IN PLACE. ON CPM AT THIS TIME. DENIES NEEDS.
[2019-07-14 08:01] VITALS: BP 129/66
--- NOTE | 2019-07-14 09:00 | NUR ---
ATE OVER HALF OF BREAKFAST. TOOK AM MEDS WITHOUT DIFFICULTY. DENIES NEEDS.
[2019-07-14] MEDS ORDERED: VISTARIL50 MG PO (10:23)
[2019-07-14] MEDS ORDERED: OXYCODONE HCL5 M1 PO (10:23)
[2019-07-14 11:26] VITALS: BP 163/88
--- NOTE | 2019-07-14 11:39 | NUR ---
ASSISTED TO BSC WITH MOD X2. VOIDED WITHOUT DIFFICULTY CLEAR YELLOW URINE. REPOSITIONED IN BED FOR COMFORT. REQUESTED AND GIVEN 10MG OXY PO FOR C/O RIGHT KNEE PAIN LEVEL 8. WILL MONITOR.
--- NOTE | 2019-07-14 12:34 | MORECARE ---
CASE MANAGEMENT DISCHARGE SUMMARY PATIENT: ALEXYS MIGUEL UNIT: [id number] ADM DATE: 07/11/19 AGE: 74 : 46 SEX: F ROOM/BED: D.1213 AUTHOR: JONATHAN,DOC PHYSICIAN: REFERRING PHYSICIAN: BELÉN TRAORE DO DATE OF SERVICE: 07/14/19 Discharge Plan Patient Name: ALEXYS MIGUEL Facility: [facility]:[place] : 1945 Planned Disposition: Home Anticipated Discharge Date: 07/14/19 Discharge Date: Expected LOS: 3 Initial Reviewer: [email or web address] Initial Review Date: 07/11/2019 Generated: 07/14/19 1:34 pm Comments DCP- Discharge Planning Updated by [email or web address]: Arielle Krishna on 07/14/19 11:[address] DC PLAN: Patient accepted to Inpatient Rehab at [place]. Received call from Lula that patient had been accepted. CM notified Dr. Traore of acceptance. DC order received. Natalia from rehab called and stated the room number is 1111-A and the room will be ready after 1230 today. Ariella PALOMO notified and will call report. Arielle Krishna RN, [facility] DCP- Discharge Planning Updated by [email or web address]: Rebeka Cazares on 07/13/19 2:[address] Patient has informed CM that she would like to go into [facility]. Patient Choice signed. Contacted Lula with rehab and made her aware of Rehab consult. Contacted Ruba with [facility] to cancel the appointment for Wednesday. DCP- Discharge Planning Updated by [email or web address]: Rebeka Cazares on 07/12/19 1:[address] CM contacted Ruba, with [facility], scheduled appointment for Wednesday07/17/19 @1:30 pm with Ed. [facility] will call patient on the of her DC to confirm time of appointment. Faxed Knee x-ray and Surgery Post Op Report as requested. Copy of the appointment given to the patient. DCP- Discharge Planning Updated by [email or web address]: Rebeka Cazares on 07/12/19 10:[address] CM met with patient to discuss initial discharge planning. Patient is in agreement to proceed with the assessment. Patient reports that she lives at home independently with her spouse. Patient is alert/oriented. Stairs/steps: 3 w/rails. PCP: Dr. Dietz. Pharmacy: [facility]. 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 HHS: No. DME: Walker, CPM, BSC, Polar [employer]. Patient gives permission to speak with family members/care givers. Emergency contact: Garcia Miguel (spouse) [phone]. Patient is Independent with all ADL's, medication management SORT SUPERVISOR. CM discussed the availability of HH, Rehab, DME services. Patient states she will use [facility]. Patient feels safe returning to previous environment. Patient denies being hospitalized within the past 30 days. Patient denies the use of community resources SORT SUPERVISOR. Transportation at time of discharge: Spouse, Garcia. CM will assist with DC needs/plans PRN. DCPIA - Discharge Planning Initial Assessment Updated by [email or web address]: Reebka Cazares on 07/12/19 1:14 pm * Is the patient Alert and Oriented? Yes * How many steps to enter\exit or inside your home? 3 w/rails * PCP Dr. Dietz * Pharmacy [facility] * Preadmission Environment Home with Family * ADLs Independent * Equipment Bedside Commode Rolling Walker Shower Chair * Other Equipment CPM * List name and contact numbers for known caregivers / representatives who currently or will assist patient after discharge: Garcia Miguel (spouse) [phone] * Verbal permission to speak to the caregivers and representatives has been obtained from the patient. Yes * Community resources currently utilized None * Please name any agencies selected above. Selected [facility] * Additional services required to return to the preadmission environment? Yes * Can the patient safely return to the preadmission environment? Yes * Has this patient been hospitalized within the prior 30 days at any hospital? No Coverage Notice Reviewer: [id number] Danielle Cazares Notice Issued Date-Time: 07/12/2019 13:58 Notice Type: Patient Choice Letter Notice Delivered To: Patient Relationship to Patient: Self Steel Hanger Name: Alexys Miguel Delivery Method: HAND - Hand Delivered Mayte Days: Prior Verbal Notification: Recipient Understood Notice: Yes Recipient Signature: Yes Med Rec Note Co-signed by Attending: Coverage Notice Comment: Patient Choice for [facility] signed by patient. Original placed on the chart, copy given to the patient. Reviewer: [id number] Danielle Cazares Notice Issued Date-Time: 07/13/2019 12:08 Notice Type: IM Discharge Notice Notice Delivered To: Patient Relationship to Patient: Self Steel Hanger Name: Alexys Miguel Delivery Method: HAND - Hand Delivered Mayte Days: Prior Verbal Notification: Recipient Understood Notice: Recipient Signature: Yes Med Rec Note Co-signed by Attending: Coverage Notice Comment: DC IMM signed by patient, original given to patient. Original to chart. Reviewer: [id number] Danielle Cazares Notice Issued Date-Time: 07/13/2019 15:03 Notice Type: Patient Choice Letter Notice Delivered To: Patient Relationship to Patient: Self Steel Hanger Name: Alexys Miguel Delivery Method: HAND - Hand Delivered Mayte Days: Prior Verbal Notification: Recipient Understood Notice: Yes Recipient Signature: Yes Med Rec Note Co-signed by Attending: Coverage Notice Comment: Patient Choice signed by patient. Last DP export: 07/13/19 4:03 p Patient Name: ALEXYS MIGUEL Page [phone] at 1234 All edits/amendments must be made on the electronic document DICTATION DATE: 07/14/19 1234 TILE ROOFER: JOE 07/14/19 1234 RPT#: [id number] DC DATE: STATUS: ADM IN [facility] [address] [place] [address] END OF REPORT
--- NOTE | 2019-07-14 13:00 | NUR ---
SITTING UP ON SIDE OF BED EATING LUNCH. DENIES NEEDS.
--- NOTE | 2019-07-14 13:35 | NUR ---
REPORT CALLED TO ROSY WEBER LPN ON REHAB. ALL QUESTIONS ANSWERED.
--- NOTE | 2019-07-14 13:37 | NUR ---
PT REFUSED LEFT LEG VDS. SAID SHE HAD IT CHECKED LAST WK AT AN OP CLINIC AND WAS FINE. SAID SHE SAID HER LEG HURT THIS AM BUT SHE DOESN'T NEED. WITNESSED BY STACIA CHAPA. NELIDA CALDERONMS
--- NOTE | 2019-07-14 14:05 | NUR ---
PATIENT DISCHARGED TO REHAB ROOM 1111A VIA WC. DISCHARGE INSTRUCTIONS GIVEN BOTH VERBALLY AND WRITTEN. ALL QUESTIONS ANSWERED. PATIENT VERBALIZED UNDERSTANDING OF SAME. NEEDED PRESCRIPTIONS SENT WITH PATIENT. HOME MED SENT WITH PATIENT. ALL BELONGINGS WITH PATIENT. IV TO LEFT HAND LEAKING, D/C WITH CATHETER INTACT.
== END 2019-07-14 14:07 | DRG 470 ==
LOC: D.SDCHOLD 07-11 08:55 → D.M3 07-11 08:55 → D.SDCHOLD 07-11 09:10 → D.M3 07-11 15:42
PROVIDERS: Internal Medicine Nephrology; ADMIT Orthopaedic Surgery; ATTEND Orthopaedic Surgery
PROC: 0SRC0J9 Replacement of Right Knee Joint with Synthetic Substitute, Cemented, Open Approach (ICD-10-PCS; principal; 2019-07-11 11:00)
DX: M17.11 Unilateral primary osteoarthritis, right knee (principal); N39.0 Urinary tract infection, site not specified; E11.65 Type 2 diabetes mellitus with hyperglycemia; E03.9 Hypothyroidism, unspecified; I10 Essential (primary) hypertension; K21.9 Gastro-esophageal reflux disease without esophagitis; M79.7 Fibromyalgia

== ENCOUNTER 2019-07-14 13:29 | Inpatient (IN) | payer MEDICARE, OTHER ==
[~2019-07-14] VITALS: Ht 157.5 cm; Wt 111.1 kg
[~2019-07-14 13:29] MED LIST changes: +FAMOTIDINE PO; +OXYCODONE HCL5 M1 PO; +VISTARIL50 MG PO
--- NOTE | 2019-07-14 18:50 | NUR ---
BEDSIDE REPORT COMPLETE. PT LYING IN BED VISITING WITH . DENIES ANY NEEDS. C/O RIGHT KNEE AND FOOT 4/10 ACHING PAIN. REPOSITIONED LEG. ALERT AND ORIENTED X4. NO IV OR O2 NOTED. CL IN REACH. FALL PRECAUTIONS IN PLACE. WILL CONTINUE TO MONITOR
--- NOTE | 2019-07-14 23:08 | NUR ---
PT LYING IN BED ON RIGHT SIDE EYES CLOSED RESTING. RR EVEN AND UNLABORED. CL IN REACH
[2019-07-15 00:36] VITALS: BP 136/51
[2019-07-15 00:37] VITALS: BP 136/51; BMI 44.9
--- NOTE | 2019-07-15 03:33 | NUR ---
PT LYING IN BED EYES CLOSED RESTING COMFORTABLY. RR EVEN AND UNLABORED. CL IN REACH
--- NOTE | 2019-07-15 04:00 | NUR ---
REMOVED OLD RIGHT KNEE DRESSING BLOOD SATURATED. CLEANSED SITE WITH WOUND BRUSH CLEARING LABORER, PATTED DRY WITH 4X4. ZIPTIE CLOSURE C/D/I. SWELLING NOTED. MEPILEX AG DRESSING APPLIED.
[2019-07-15 07:16] LABS: ANION GAP 10.9 mmol/L (8-16); CALCIUM 8.4 mg/dL (8.5-10.1); CARBON DIOXIDE 26.9 mmol/L (21.0-32.0); CREATININE - SERUM 0.8 mg/dL (0.6-1.3); POTASSIUM - SERUM 3.8 mmol/L (3.5-5.1)
[2019-07-15 07:17] LABS: BASOPHILS 0.1 % (0-2); EOSINOPHILS 0.7 % (0-7); HEMATOCRIT 27.7 % (36.0-48.0); HEMOGLOBIN 8.5 g/dL (12-16); IMMATURE GRANULOCYTES 0.3 % (0-5); LYMPHOCYTES 19.3 % (15-50); MCH 24.7 pg (26.0-34.0); MCHC 30.7 g/dL (31.0-37.0); MCV 80.5 fL (80.0-100.0); MEAN PLATELET VOLUME 10.9 fL (7.4-10.4); MONOCYTES 11.1 % (2-11); NEUTROPHILS 68.5 % (40-80); PLATELET COUNT 414 10x3/uL (130-400); RBC 3.44 10x6/uL (4.00-5.40); RDW 18.4 % (11.5-14.5); WBC 14.4 10x3/uL (4.8-10.8)
[2019-07-15 08:00] VITALS: BP 118/60
--- NOTE | 2019-07-15 09:00 | NUR ---
DR PHILLIPS INTO SEE PATIENT. PATIENT YELLING AT DR PHILLIPS. STATED SHE NEEDED MORE PAIN MEDICATION. WHEN DR PHILLIPS ASKED PATIENT ABOUT HER PAIN LEVEL AND WHERE SHE HAD PAIN; PATIENT STATED HE COULD JUST GET OUT OF HER ROOM. NEW ORDERS RECEIVED.
--- NOTE | 2019-07-15 09:25 | NUR ---
PHYSICAL THERAPIST HAS PATIENT OUT IN THE HALLWAY. PATIENT STARTED TO YELL AT PRINCE, THE PHYSICAL THERAPIST. TOLD THERAPIST "DON'T TELL ME WHAT TO DO." PRINCE TOLD THE PATIENT THAT HE WAS JUST TRYING TO KEEP HER SAFE WITH HER TRANSFERS, AND THAT IF SHE DIDN'T WANT TO HAVE THERAPY HE WOULD HELP HER BACK TO BED. THIS NURSE INTERVENED. TALKED WITH PATIENT ABOUT THE NEED FOR THERAPY. PATIENT SAT IN HALLWAY FOR A FEW MINUTES AND DECIDED SHE WOULD GO TO THERAPY.
--- NOTE | 2019-07-15 10:17 | NUR ---
PATIENT IN REHAB ROOM. WORKING WITH PHYSICAL THERAPIST. PRN PAIN MEDICATION GIVEN PER PATIENT REQUEST. WILL CONTINUE WITH PLAN OF CARE
--- NOTE | 2019-07-15 10:45 | NUR ---
PATIENT IN BED WITH CPM ON RIGHT LEG. PATIENT REFUSING CPM. STATES SHE WANTS IT OFF. PATIENTS SISTER IN ROOM. PRINCE HAD ALREADY LOWERED THE ROTATOION ON CPM. THIS NURSE AND PATIENTS SISTER TALKED PATIENT INTO LEAVING CPM ON FOR ANOTHER FIFTEEN MINUTES
[2019-07-15 11:55] VITALS: Ht 157.5 cm; Wt 111.1 kg
--- NOTE | 2019-07-15 15:35 | NUR ---
ELY FERNANDO APN CALLED IN REGARDS TO PATIENT NOT HAVING A BOWEL MOVEMENT FOR OVER A WEEK. PATIENT WAS ADMITTED TO REHAB UNIT LAST NIGHT. NEW ORDER FOR [facility] DAILY.
--- NOTE | 2019-07-15 19:05 | NUR ---
BEDSIDE REPORT COMPLETE. PT LYING IN BED SUPINE EYES CLOSED RESTING. RIGHT KNEE DRESSING C/D/I, SITE IS RED, WARM, +2 EDEMA NOTED. WILL CONTINUE TO MONITOR SURGICAL SITE. IS AT BEDSIDE. NO SIGNS OF ACUTE DISTRESS NOTED. CL IN REACH. FALL PRECAUTIONS IN PLACE. WILL CONTINUE TO MONITOR
[2019-07-15 21:00] VITALS: BP 133/66
--- NOTE | 2019-07-15 21:27 | NUR ---
REMOVED OLD DRESSING TO RIGHT KNEE. MODERATE AMOUNT OF SEROSANGUINEOUS DRAINAGE. CLEANSED SITE PAT DRY WITH 4X4 AND COVERED WITH MEPILEX AG DRESSING. SMALL BLISTER ON OUTER PART OF RIGHT LEG COVERED WITH 2X2 MEPILEX.
--- NOTE | 2019-07-16 00:35 | NUR ---
PT LYING IN BED EYES CLOSED RESTING. RR EVEN AND UNLABORED. CL IN REACH
--- NOTE | 2019-07-16 05:11 | NUR ---
PT LYING IN BED SUPINE EYES CLOSED RESTING COMFORTABLY. RR EVEN AND UNLABORED. CL IN REACH
[2019-07-16 08:00] VITALS: BP 103/64
--- NOTE | 2019-07-16 10:00 | NUR ---
PRN PAIN MEDICATION GIVEN PER PATIENT REQUEST FOR RIGHT KNEE PAIN. PATIENT ALSO C/O OF HER LOWER BACK HURING. HEAT APPLIED TO LOWER BACK. PATIENT RESTING IN BED. CALL LIGHT WITHIN REACH. WILL CONTINUE WITH PLAN OF CARE
--- NOTE | 2019-07-16 13:40 | NUR ---
PATIENT HELPED IN SHOWER BY THIS NURSE. MODERATE ASST. PATIENT CAN NOT WASH OR DRY BACK OF BUTTOM
--- NOTE | 2019-07-16 15:36 | NUR ---
USE OF CPM ENCOURAGED BY THIS NURSE. PATIENT HAS STATED THREE TIMES THAT SHE WANTS TO WAIT UNTIL LATER.
--- NOTE | 2019-07-16 18:45 | NUR ---
BEDSIDE REPORT COMPLETE. PT LYING IN BED ON RIGHT SIDE EYES CLOSED RESTING. RR EVEN AND UNLABORED. EASILY AROUSED WITH VERBAL STIMULI. DENIES ANY NEEDS OR PAIN. RT KNEE DRESSING C/D/I. CL IN REACH. FALL PRECAUTIONS IN PLACE. WILL CONTINUE TO MONITOR
[2019-07-16 20:00] VITALS: BP 137/74
--- NOTE | 2019-07-16 21:40 | NUR ---
PT CAME OUT IN THE HALLWAY IN W/C STATING THAT "PEOPLE ARE ON THE PHONE ORDERING THERE OWN DRUGS" PT INSISTED ON GOING INTO ANOTHER PT ROOM TO INVESTIGATE WHO WAS ON THE PHONE AND WHY THEY WERE ORDERING DRUGS. PT STATES "THIS PLACE IS JUST A COVER UP FOR WHAT IS REALLY GOING ON" I ASKED THE PT WHAT SHE THOUGHT WAS BEING COVERED UP. PT STATES "THIS PLACE IS JUST A BIG DRUG RING AND WE ARE JUST YOUR GUINEA PIGS" ATTEMPTED TO REORIENT PT, BUT PT STARTED TO RAISE HER VOICE AND BECOME VERY AGGITATED. STACIA SMITH ASSISTED IN GETTING PT BACK INTO HER ROOM.
--- NOTE | 2019-07-17 00:08 | NUR ---
PT LYING IN BED ON RIGHT SIDE EYES CLOSED RESTING. RR EVEN AND UNLABORED. CL IN REACH
--- NOTE | 2019-07-17 02:55 | NUR ---
RT KNEE OLD DRESSING REMOVED SATURATED WITH BLOOD. CLEANSED AREA WITH WOUND CLEANSER, PATTED DRY WITH 4X4. COVERED WITH MEPILEX AG. DATE, TIMED AND INITIALED.
[2019-07-17 06:41] LABS: BASOPHILS 0.4 % (0-2); EOSINOPHILS 1.2 % (0-7); HEMATOCRIT 26.7 % (36.0-48.0); HEMOGLOBIN 8.2 g/dL (12-16); IMMATURE GRANULOCYTES 0.6 % (0-5); LYMPHOCYTES 23.9 % (15-50); MCH 24.4 pg (26.0-34.0); MCHC 30.7 g/dL (31.0-37.0); MCV 79.5 fL (80.0-100.0); MEAN PLATELET VOLUME 11.1 fL (7.4-10.4); MONOCYTES 12.5 % (2-11); NEUTROPHILS 61.4 % (40-80); PLATELET COUNT 525 10x3/uL (130-400); RBC 3.36 10x6/uL (4.00-5.40); RDW 18.1 % (11.5-14.5); WBC 10.7 10x3/uL (4.8-10.8)
[2019-07-17 06:47] LABS: ANION GAP 10.3 mmol/L (8-16); CALCIUM 8.6 mg/dL (8.5-10.1); CARBON DIOXIDE 28.6 mmol/L (21.0-32.0); CREATININE - SERUM 0.9 mg/dL (0.6-1.3); POTASSIUM - SERUM 3.9 mmol/L (3.5-5.1)
--- NOTE | 2019-07-17 07:10 | NUR ---
AWAKE AND POSITIONED ON BACK, RESP UNLABORED. DRESSING TO RIGHT KNEE WITH SOME RED SEROUS DRAINAGE. NO C/O ANY PAIN AT PRESENT TIME. BED IN LOW LOCKED POSITION, SIDRAILS UP X 2 AND CALL LIGHT WITHIN REACH.
--- NOTE | 2019-07-17 07:11 | NUR ---
RESTIING POSITIONED ON BACK WITH EYES CLOSED. RESP EVEN AND UNLABORED WITH 02 ON AT 2L/M VIA N/C. NO APPARENT PROBLEMS AT THIS TIME. SIDERAILS UP X 2, BED IN LOW LOCKED POSITION AND CALL LIGHT WITHIN REACH.
--- NOTE | 2019-07-17 08:30 | NUR ---
BANDAGE TO INCISION RIGHT KNEE REMOVED AND INCISION LINE CLEANED WITH WOUND SAP HANA DEVELOPER. HAS HEAVY AMT OF SEROUS BLOODY DRAINAGE ON DRESSING. CLEAN DRESSING APPLIED.
[2019-07-17 09:48] VITALS: BP 123/67
--- NOTE | 2019-07-17 10:51 | NUR ---
PT IS UPSET AND CRYING STATING SOME OF THE PEOPLE HERE HAVE BEEN VERY ARROGANT TOWARD HER ABD SHE IS NOT GOING TO BE TREATED LIKE A CHILD AND TOLD WHAT SHE WILL DO. THIS WAS AFTER THERAPY CAME IN AND TOLD HER IT WAS TIME TO GO TO OT. SHE ALSO STATES SHE HAS BEEN TOLD AT LEAST 5 TIMES SINCE SHE HAS BEEN HERE THAT SHE ALWAYS HAS THE OPTION TO LEAVE. UPON FURTHER CONVERSATION SHE STATED SHE IS STILL HURTING AND WAS NOT EVEN HEALED FROM SURGERY ON LEFT KNEE WHEN SHE HAD THE RIGHT ONE DONE AND WANTS SOME UNDERSTANDING AND COMPASSION. MEDICATED HER WITH VISTARIL FOR THE PAIN AND TOLD HER AFTER RESTING IF SHE DECIDES TO GO TO THERAPY I WILL SEE IF THEY CAN DO IT SOME TIME TODAY.
--- NOTE | 2019-07-17 14:29 | NUR ---
PATIENT ADMITTED TO REHAB FROM ACUTE FLOOR. DR. HUMPHREYS IS PATIENT PCP. DME AT HOME IS A WALKER, POLAR PACK, CPM, BEDSIDE COMMODE AND A SHOWER CHAIR. DISCHARGE PLANS ARE FOR HER TO RETURN HOME. WILL CONTINUE TO FOLLOW WITH PATIENT.
--- NOTE | 2019-07-17 16:47 | RHP ---
PATIENT: ALEXYS JENSEN MEDICAL RECORD: [id number] ACCOUNT: [id number] LOCATION:[facility] [address] : [birth year] ADMISSION DATE: 07/14/19 REHABILITATION HISTORY AND PHYSICAL EXAMINATION POST ADMISSION PHYSICIAN EXAMINATION ADMITTING DIAGNOSIS: Right total knee replacement. HISTORY OF PRESENT ILLNESS: The patient is a 74-year-old female patient who had osteoarthritis to her right knee, status post a total knee arthroscopy, but she has been dealing with right knee pain for some time. This has affected her activities of daily living. She wanted something done finally, surgery on 07/11/2019, she had a right TKA, got a history of hypothyroidism, parathyroid problems, diabetes, DVT, hypertension, reflux, diverticular disease, chronic back pain, fibromyalgia, anxiety and obesity, postop was complicated by some fever. She also had acute blood loss anemia. She has been requiring some antibiotics. She has had some intractable pain and receiving oxycodone and Dilaudid for this. She has also been tachycardic. She has had hyperglycemia with elevated blood sugars, leukocytosis, some decrease in her p.o. intake resulting inadequate energy intake. She has been seen by nutrition. She has continued today to have left lower extremity pain and with her history of DVT. We need to watch this closely. She is a high risk for decompensation secondary to the above factors. Previously, she was living alone, was moderately independent with rolling walker for ADLs and mobility. Currently, she is mod to max assist for ADLs and mobility. She has rare intractable pain. She has got decreased p.o. intake, reluctance to get out of bed secondary to pain, poor balance and requires safety cues for transfers and gait. She would like to return her to her prior level of functioning and hopefully return home. COMORBIDITIES: Include right knee osteoarthritis, she has got diabetes, hyperglycemia, UTI, postop fever, tachycardia, obesity, history of DVT, hypertension, chronic back pain, fibromyalgia, depression, anxiety, and parathyroid malfunctions. PAST MEDICAL HISTORY: Significant for DVT, she has got a history of melanoma, acid reflux, diverticulitis, appendectomy, hernia repair in the past, arthritis, fibromyalgia, osteopenia. She has got a history of depression and anxiety. PAST SURGICAL HISTORY: Includes appendectomy, splenectomy, bilateral tubal ligation, gallbladder surgery, esophageal dilatation, incisional hernia repair, ankle surgery, back surgery. She has had a left total knee arthroscopy and left ankle surgery. ALLERGIES: IODINATED DYE, SULFA, LEVAQUIN AND QUININE. CURRENT MEDICATIONS: Include Floranex 1 cap daily. She is on Levaquin 500 mg daily. She is on gabapentin daily. She is on Horizant, she takes her home meds. She is on Protonix 40 mg daily, amoxicillin 875/125 one tab b.i.d., Xarelto 15 mg b.i.d. with meals. She is on Glucophage 500 mg b.i.d., Zofran 4 mg every 6 hours p.r.n., OxyIR 5 mg every 6 hours p.r.n. and Vistaril 50 mg q.i.d. p.r.n. HABITS: No alcohol or tobacco use. FAMILY HISTORY: Noncontributory. HISTORY AND PHYSICAL [id number] ALEXYS JENSEN SOCIAL HISTORY: The patient hopes to return back home and get back to her prior level of functioning. REVIEW OF SYSTEMS: GENERAL: Does complain of weakness and fatigue. HEENT: Denies cold, cough, or congestion. CARDIOVASCULAR: Denies any chest pain. PHYSICAL EXAMINATION: VITAL SIGNS: Stable, afebrile. GENERAL: A well-developed, somewhat obese female in no acute distress upon exam. HEENT: Normocephalic and atraumatic. Mucosa moist. NECK: Supple. No lymphadenopathy. LUNGS: Clear at this time. No wheezing, rhonchi or rales. HEART: Irregular rate and rhythm. No murmurs, rubs, or gallops. ABDOMEN: Soft, benign and nondistended. Positive bowel sounds times 4. NEUROLOGIC: She does have noted changes secondary to postop of her knee, but it looks good. I see no signs of infection at this time. She does have some warmth to it. NEUROLOGIC: She is mainly intact. LABORATORY DATA: Her white count is 14.4, H&H of 8.5 and 27.7 and platelet count is 414. Her sodium is 134, potassium 3.8, BUN and creatinine of 12 and 0.8 and blood sugar is 128. ASSESSMENT: This is a 74-year-old female patient admitted to rehab with a working diagnosis of status post right total knee replacement. The patient has potential to make improvement. We instituted the following multidisciplinary therapies including, but not limited to physical, occupational, respiratory, speech, nutritional services, prosthetics and orthotics. Given her complex medical condition, risk of further medical complications, rehabilitative services cannot be provided at a low level of care such a skilled nurse facility. PLAN: 1. Admit to [facility] for intensive inpatient therapy to include the following disciplines; A. Physical therapy to improve gait, all transfer skills and bed mobility to a modified independent level. B. Occupational therapy to improve activities of daily living. C. Case management to assist with discharge planning and placement options. D. Nutrition to assist with nutritional needs. E. Rehabilitation nursing to assist in monitoring the patient's underlying medical conditions and to assist with any type of bowel or bladder management. 2. The patient's current medication and medical care will be continued. 3. The patient will be placed on standard fall precautions. 4. We will watch her H&H closely, I will transfuse if needed. 5. We will go ahead and watch her temperature. She is running a low-grade temperature today at 100. We will watch for any signs of infection or adjustments needed to this and I will see again in the a.m., either on Wednesday or Wednesday. TRANSINT:[id number] Voice Confirmation ID: [id number] DOCUMENT ID: [id number] HISTORY AND PHYSICAL [id number] ALEXYS JENSEN notes whether there has been none or any medical/functional change since admission: - No Change since the PAS [facility] attests patient continues to be appropriate for IRF: - Remains appropriate for the [facility] ANNIE PHILLIPS MD at 1647 CC: [id number] DICTATION DATE: 07/15/19 0904 LOCOMOTIVE FIRER/FIREMAN: 07/15/19 1033 ADM IN [facility] [address] [place] [address]
--- NOTE | 2019-07-17 19:20 | NUR ---
GREETED PATIENT AND INTRODUCED MYSELF. PATIENT IS LAYING IN BED RESTING AT THIS TIME. RESPIRATIONS EVEN. NO S/S OF DISTRESS. PATIENT DENIES ANY NEEDS AT THIS TIME. BEDISDE SHIFT REPORT COMPLETE FROM OFF GOING NURSE. CALL LIGHT IN REACH.
[2019-07-17 20:41] VITALS: BP 143/90
--- NOTE | 2019-07-18 00:26 | NUR ---
PT IS EXTREMELY RUDE AND SHORT WITH NURSING STAFF AND WELDING MACHINE OPERATOR THERMIT. NO MATTER WHAT STEPS ARE TAKEN TO MAKE PATIENT COMFORTABLE OR OFFER TO HELP. PT. STATES " I DO NOT WANT TO BE HERE, AND I WANT THINGS MY WAY AND IF I DONT GET THINGS THE WAY I LIKE THEM THEN IT UPSETS ME." EXPLAINED TO PATIENT THAT THIS IS A HOSPITAL AND NOT HER HOME AND WE ARE NOT ABLE TO DO EVERYTHING LIKE SHE HAS IT AT HOME, BUT ARE TRYING TO MAKE HER STAY COMFORTABLE POSSIBLE.
--- NOTE | 2019-07-18 02:26 | NUR ---
PT. RESTING QUIETLY WITH EYES CLOSED. RESPIRATIONS EVEN. NO S/S OF DISTRESS. CALL LIGHT IN REACH.
[2019-07-18 15:02] VITALS: BP 163/84
--- NOTE | 2019-07-18 16:40 | NUR ---
HAD LONG TALK WITH PATIENT REGARDING HER THERAPY , SHE HAS DECLINED TO PARTICIPIATE AFTER CHANGING HER TIMES TO ACCOMDATE HOW SHE FEELS. SHE FEELS THAT SHE COULD DO BETTER AT HOME SO SHE HAS DECIDED THAT SHE WOULD LIKE TO DISCHARGE HOME. SHE STATES SHE HAS ALL THE EQUIPMENT NEEDED AT HOME. WILL SPEAK WITH DR. PHILLIPS IN AM AND GET DISCHARGE ORDER.WILL CONTINUE TO FOLLOW WITH PATIENT.
--- NOTE | 2019-07-18 18:03 | NUR ---
PT RESTING IN BED. BED ALARM WAIVER SIGNED THIS AM. PT DENIES NEEDS. WCTM.
--- NOTE | 2019-07-18 19:05 | NUR ---
GREETED PATIENT AND INTRODUCED MYSELF HER NURSE. PATIENT IS LAYING IN BED RESTING AT THIS TIME. FAMILY MEMBER AT BEDSIDE. RESPIRATIONS EVEN. NO S/S OF DISTRESS. CALL LIGHT IN REACH. BEDSIDE SHIFT REPORT COMPLETE FROM OFF GOING NURSE.
--- NOTE | 2019-07-18 19:51 | NUR ---
REMOVED OLD DRESSING ON PTS. LEFT KNEE. CLEANED WOUND WITH SAFE-CLENS. APPLIED 4X4'S COVERED WITH BORDER DRESSING. PT. TOLERATED PROCEDURE. REPOSITIONED FOR COMFORT. CALL LIGHT IN REACH.
[2019-07-19 00:07] VITALS: BP 155/60
--- NOTE | 2019-07-19 01:59 | NUR ---
PT. RESTING QUIETLY WITH EYES CLOSED. RESPIRATIONS EVEN. NO S/S OF DISTRESS. CALL LIGHT IN REACH.
[2019-07-19 08:56] LABS: BASOPHILS 0.5 % (0-2); EOSINOPHILS 3.3 % (0-7); HEMATOCRIT 25.9 % (36.0-48.0); HEMOGLOBIN 7.8 g/dL (12-16); IMMATURE GRANULOCYTES 0.7 % (0-5); LYMPHOCYTES 35.3 % (15-50); MCH 24.3 pg (26.0-34.0); MCHC 30.1 g/dL (31.0-37.0); MCV 80.7 fL (80.0-100.0); MEAN PLATELET VOLUME 10.8 fL (7.4-10.4); MONOCYTES 10.4 % (2-11); NEUTROPHILS 49.8 % (40-80); RBC 3.21 10x6/uL (4.00-5.40); RDW 18.3 % (11.5-14.5); WBC 9.6 10x3/uL (4.8-10.8)
[2019-07-19 08:59] LABS: ANION GAP 6.9 mmol/L (8-16); CALCIUM 8.2 mg/dL (8.5-10.1); CREATININE - SERUM 0.8 mg/dL (0.6-1.3); POTASSIUM - SERUM 3.9 mmol/L (3.5-5.1)
[2019-07-19 09:23] LABS: PLATELET COUNT 635 10x3/uL (130-400)
[2019-07-19 09:36] VITALS: BP 152/52
--- NOTE | 2019-07-19 10:44 | NUR ---
ALERT AND ORIENTED. MEDICATED FOR PAIN OF 10/10. SHE STATED THAT IT LOWERED TO 7/10. WANTS TO BE DISCHARGED. NO SIGNS OF DISTRESS.
[2019-07-19] MEDS ORDERED: TUMS PO (11:00)
[2019-07-19] MEDS ORDERED: oxyCODONE IR PO (11:01)
[2019-07-19] MEDS ORDERED: OXYCODONE HCL5 M1 PO (11:02)
--- NOTE | 2019-07-19 12:51 | NUR ---
PT GIVEN DISCHARGE INSTRUCTIONS (VERBAL AND WRITTEN). RIGHT KNEE EVALUATED WITH ZIP TIE SUTURES NOTED INTACT. MODERATE AMOUNT OF SEROUS DRAINAGE NOTED ON OLD DRSG. NO REDNESS AT INCISION SITE. INSTRUCTED PT NOT TO SHOWER OR BATHE, WOUND IS STILL DRAINING. INSTRUCTED TO CLEAN WITH PEROXIDE OR ALCOHOL, APPLY STERILE 4 X 4'S, COVER WITH LARGE MEPIPLEX AND SECURE KATH WRAP AROUND KNEE. 3+ EDEMA NOTED IN RIGHT LOWER EXTREMITY. INSTRUCTED TO USE LEG DIRECTED BY PT AND ELEVATE ABOVE HEART TO DECREASE SWELLING. DISCHARGED WITH PAIN MED SCRIPT AND MEDS CALLED INTO PHARMACY.
--- NOTE | 2019-07-19 14:14 | NUR ---
PATIENT DISCHARGED HOME WITH FAMILY TODAY. PATIENT HAS CHOSEN [facility], PATIENT CHOICE FORM SIGNED AND FILED IN CHART AND ONE GIVEN TO PATIENT. NO COMPARE DATA REVIEWED PATIENT HAS USED [facility] IN THE PAST. IM FORM SIGNED AND EXPLAINED, ONE GIVEN TO PATIENT AND ONE FILED IN CHART. DR. HUMPHREYS 07/25/2019 @ 10:00, DR. TRAORE 07/27/2019 @ 2:20. DISCHARGE INSTRUCTIONS FAXED TO PCP, HOME HEALTH AND REVIEWED WITH PATIENT.
--- NOTE | 2019-07-19 14:26 | NUR ---
PATIENT STATES THAT DR. TRAORE HAS ARRANGED FOR DME NEEDS.
== END 2019-07-19 13:00 | disposition home health service (06) | DRG 560 ==
LOC: D.REHAB 13:29
PROVIDERS: ADMIT Emergency Medicine; ATTEND Emergency Medicine
DX: Z47.1 Aftercare following joint replacement surgery (principal); N39.0 Urinary tract infection, site not specified; Z68.41 Body mass index [BMI] 40.0-44.9, adult; D62 Acute posthemorrhagic anemia; Z96.651 Presence of right artificial knee joint; E11.9 Type 2 diabetes mellitus without complications; E66.9 Obesity, unspecified; R00.0 Tachycardia, unspecified; I10 Essential (primary) hypertension; E11.65 Type 2 diabetes mellitus with hyperglycemia; R50.82 Postprocedural fever; E03.9 Hypothyroidism, unspecified; K21.9 Gastro-esophageal reflux disease without esophagitis; M79.7 Fibromyalgia